=== PATIENT | male | born 1965 | race Caucasian/White ===

== ENCOUNTER 2016-10-02 10:50 | Outpatient (RCR) | payer BC ==
--- OUTSIDE RECORDS SUMMARY | 2016-08-07 14:55 | XMS REPORT | Continuity of Care Document ---
Author Author [facility] Organization [facility] Address Unknown Phone Unavailable Care Team Providers Care Machine Chain Maker Name Role Phone Dante Gabriel PCP [phone] Source Comments Some departments are not documenting in the electronic medical record. If you do not see the information that you expected, contact Release of Information in the Health Information Management department at [phone] for further assistance in locating additional records.[facility] Active Allergies and Adverse Reactions No Known Allergies Current Medications Prescription Sig. Disp. Refills Start End Date Status Date NO HOME MEDICATIONS Active Active Problems Problem Noted Date Pancreatic adenocarcinoma (HCC) 06/19/2011 Pancreatic mass 06/11/2011 Immunizations Name Dates Previously Given Next Due Acthib Vaccine 06/11/2011 Meningococcal Vaccine 06/11/2011 Pneumococcal Vaccine 06/11/2011 (23-Sujata Adult) Social History Tobacco Use Types Packs/Day Years Used Date Current Every Day Smoker Cigarettes 1 30 Smokeless Tobacco: Never Used Alcohol Use Drinks/Week oz/Week Comments Yes 5 Cans of 3.0 beer Last Filed Vital Signs Vital Sign Reading Time Taken Blood Pressure 147/104 06/11/2011 4:07 PM CDT Pulse 70 06/11/2011 4:07 PM CDT Temperature 36.9 C (98.4 F) 06/11/2011 4:07 PM CDT Respiratory Rate - - Height 1.651 m (5' 5") 06/11/2011 4:07 PM CDT Weight 75.841 kg (167 lb 3.2 oz) 06/11/2011 4:07 PM CDT Body Mass Index 27.82 06/11/2011 4:07 PM CDT Oxygen Saturation 98% 06/11/2011 4:07 PM CDT Plan of Care Health Maintenance Due Date Last Done Comments Physical (Comprehensive) 02/26/1971 Exam Pertussis Vaccine 02/26/1975 Tetanus Vaccine 02/26/1981 Colorectal Cancer 02/26/2014 Screening Influenza Vaccine 05/10/2016 Results from Last 3 Months Not on file
[2016-08-07 15:10] LABS: BASOPHILS # (AUTO) 0.1 10^3/uL (0.0-0.1); BASOPHILS % (AUTO) 1 % (0-10); EOSINOPHILS # (AUTO) 0.4 10^3/uL (0.0-0.3); EOSINOPHILS % (AUTO) 3 % (0-10); LYMPHOCYTES # (AUTO) 4.1 X 10^3 (1.0-4.0); LYMPHOCYTES % (AUTO) 30 % (12-44); MEAN CORPUSCULAR HEMOGLOBIN 36 PG (25-34); MEAN CORPUSCULAR HGB CONC 35 G/DL (32-36); MEAN CORPUSCULAR VOLUME 100 FL (80-99); MEAN PLATELET VOLUME 9.1 FL (7.4-10.4); MONOCYTES # (AUTO) 1.9 X 10^3 (0.0-1.0); MONOCYTES % (AUTO) 14 % (0-12); NEUTROPHILS # (AUTO) 7.2 X 10^3 (1.8-7.8); NEUTROPHILS % (AUTO) 52 % (42-75); PLATELET COUNT 358 10^3/uL (130-400); RED BLOOD COUNT 4.45 10^6/uL (4.35-5.85); RED CELL DISTRIBUTION WIDTH 12.8 % (10.0-14.5); WHITE BLOOD COUNT 13.8 10^3/uL (4.3-11.0)
[2016-08-07 15:37] LABS: ALANINE AMINOTRANSFERASE 15 U/L (0-55); ALBUMIN 4.5 G/DL (3.2-4.5); ANION GAP 9 MMOL/L (5-14); ASPARTATE AMINO TRANSFERASE 35 U/L (5-34); BLOOD UREA NITROGEN 8 MG/DL (7-18); BUN/CREATININE RATIO 10; CALCIUM 9.4 MG/DL (8.5-10.1); CARBON DIOXIDE 26 MMOL/L (21-32); CHLORIDE 95 MMOL/L (98-107); GFR ESTIMATED > 60; GLUCOSE 175 MG/DL (70-105); POTASSIUM 4.2 MMOL/L (3.6-5.0); SODIUM 130 MMOL/L (135-145)
[2016-08-08 10:58] LABS: BILIRUBIN,URINE NEGATIVE (NEGATIVE); KETONES,URINE NEGATIVE (NEGATIVE); LEUKOCYTE ESTERASE ,URINE NEGATIVE (NEGATIVE); NITRITE,URINE NEGATIVE (NEGATIVE); PH,URINE 7 (5-9); PROTEIN,URINE NEGATIVE (NEGATIVE); UROBILINOGEN,URINE NORMAL (NORMAL)
[2016-08-08 11:04] LABS: SQUAMOUS EPITHELIAL CELL,UR 0-2 /HPF
[~2016-10-02 10:50] MED LIST: CIPR500S2 PO; CTLP20T PO; DRON2.5C PO; METF-478 PO; ONDA8TAB2 PO; OXYC-12 PO; WRF2.5T PO; WRF5T PO
[2016-10-02 11:40] LABS: BASOPHILS # (AUTO) 0.1 10^3/uL (0.0-0.1); BASOPHILS % (AUTO) 1 % (0-10); EOSINOPHILS # (AUTO) 0.4 10^3/uL (0.0-0.3); EOSINOPHILS % (AUTO) 4 % (0-10); LYMPHOCYTES # (AUTO) 2.8 X 10^3 (1.0-4.0); LYMPHOCYTES % (AUTO) 27 % (12-44); MEAN CORPUSCULAR HEMOGLOBIN 35 PG (25-34); MEAN CORPUSCULAR HGB CONC 35 G/DL (32-36); MEAN CORPUSCULAR VOLUME 99 FL (80-99); MEAN PLATELET VOLUME 8.9 FL (7.4-10.4); MONOCYTES # (AUTO) 1.7 X 10^3 (0.0-1.0); MONOCYTES % (AUTO) 17 % (0-12); NEUTROPHILS # (AUTO) 5.3 X 10^3 (1.8-7.8); NEUTROPHILS % (AUTO) 51 % (42-75); PLATELET COUNT 367 10^3/uL (130-400); RED BLOOD COUNT 4.42 10^6/uL (4.35-5.85); RED CELL DISTRIBUTION WIDTH 12.7 % (10.0-14.5); WHITE BLOOD COUNT 10.2 10^3/uL (4.3-11.0)
[2016-10-02 12:18] LABS: ALANINE AMINOTRANSFERASE 17 U/L (0-55); ALBUMIN 4.3 G/DL (3.2-4.5); ANION GAP 9 MMOL/L (5-14); ASPARTATE AMINO TRANSFERASE 28 U/L (5-34); BILIRUBIN,TOTAL 1.1 MG/DL (0.1-1.0); BLOOD UREA NITROGEN 4 MG/DL (7-18); BUN/CREATININE RATIO 5; CALCIUM 8.7 MG/DL (8.5-10.1); CARBON DIOXIDE 22 MMOL/L (21-32); CHLORIDE 100 MMOL/L (98-107); CREATININE SERUM 0.75 MG/DL (0.60-1.30); GFR ESTIMATED > 60; GLUCOSE 123 MG/DL (70-105); POTASSIUM 4.1 MMOL/L (3.6-5.0); SODIUM 131 MMOL/L (135-145); TOTAL PROTEIN 6.9 G/DL (6.4-8.2)
== END 2016-11-05 | disposition home or self-care (01) ==
LOC: ONC 10:50
PROVIDERS: ATTEND Internal Medicine Hematology & Oncology
DX: C25.1 Malignant neoplasm of body of pancreas (principal); C78.7 Secondary malignant neoplasm of liver and intrahepatic bile duct; E11.9 Type 2 diabetes mellitus without complications; I10 Essential (primary) hypertension; F17.210 Nicotine dependence, cigarettes, uncomplicated; Z86.711 Personal history of pulmonary embolism; Z79.899 Other long term (current) drug therapy; Z80.3 Family history of malignant neoplasm of breast; Z80.52 Family history of malignant neoplasm of bladder; Z80.1 Family history of malignant neoplasm of trachea, bronchus and lung; Z80.8 Family history of malignant neoplasm of other organs or systems; Z80.42 Family history of malignant neoplasm of prostate
CPT/HCPCS: 36415; 80053; 81000; 85025; 86301; 99213

== ENCOUNTER → 2016-11-14 | Outpatient (CLI) | payer BC ==
[~2016-11-14] MED LIST changes: +BARIUM SUSPENSION 2.1% (VANILLA SILQ) 450 ML PO ONE; +CATHETER FLUSH 10 ML SYR IV PRN; +IOHEXOL 350 MG/ML 100 ML (OMNIPAQUE 350) VIAL IV ONE; +NS 100 ML (IVPB) BAG IV ONE
--- OUTSIDE RECORDS SUMMARY | 2016-11-14 08:12 | XMS REPORT | Continuity of Care Document ---
Author Author [facility] Organization [facility] Address Unknown Phone Unavailable Care Team Providers Care Corporate Development Analyst Name Role Phone Dante Gabriel PCP [phone] Source Comments Some departments are not documenting in the electronic medical record. If you do not see the information that you expected, contact Release of Information in the Health Information Management department at [phone] for further assistance in locating additional records.[facility] Active Allergies and Adverse Reactions [...]
--- NOTE | 2016-11-14 10:51 | Diagnostic Imaging Report ---
PROCEDURE: CT chest, abdomen, and pelvis with contrast. TECHNIQUE: Multiple contiguous axial images were obtained through the chest, abdomen, and pelvis after the administration of intravenous contrast. INDICATION: Pancreatic carcinoma. FINDINGS: The previous CT chest exam of 05/16/2016 noted a 3 mm noncalcified nodular density in the left upper lung. That finding is again evident and essentially no different (image 26 of 121). The prior study also identified a 6 mm pretracheal node and a 10 mm right hilar node. Those findings are also again visualized and stable. The lungs are otherwise clear. There is no sign of pneumonia, failure or pleural effusion to suggest an acute abnormality. The heart size is within normal limits. There are no coronary artery calcifications identified. The aorta is not abnormally dilated. There is no defect within the pulmonary arteries to indicate a pulmonary embolus. As noted on the prior CT abdomen/pelvis exam of 08/07/2016, the left lobe of the liver, the spleen, gallbladder and the body and tail of the pancreas are surgically absent. There is no abnormal density in either of these areas to suggest recurrent malignancy. The small area of diminished density in the right lobe of the liver seen on several previous exams is again evident and does not appear to have changed significantly. Consequently, this may well be related to scar formation. The liver is otherwise homogeneous. The kidneys, adrenals, aorta and inferior vena cava are unremarkable for an acute abnormality. The stomach is not well-distended and consequently difficult to assess. There are numerous fluid-filled segments of small bowel present. There is no sign of a bowel obstruction however. There does appear to be radiopaque material in the right colon. This may be secondary to ingested medication. The appendix was visualized and is not abnormal. The prostate gland is unremarkable. The wall of the urinary bladder is uniformly thickened. This finding is similar to the prior exam and is probably related to incomplete distention as opposed to cystitis. There is no pelvic mass or free fluid collection noted. Bone windows show no sign of a fracture or acute abnormality. IMPRESSION: The overall appearance of the chest, abdomen and pelvis is stable when compare to the prior exam. There is no acute abnormality identified and there is no new mass visualized to suggest neoplasm. Dictated by: Dictated on workstation # [id number]
== END ==
LOC: RAD 08:08
PROVIDERS: ATTEND Internal Medicine Hematology & Oncology
DX: C25.1 Malignant neoplasm of body of pancreas (principal); C78.7 Secondary malignant neoplasm of liver and intrahepatic bile duct; Z72.0 Tobacco use
CPT/HCPCS: 71260; 74177

== ENCOUNTER 2016-11-21 09:04 | Outpatient (RCR) | payer BC ==
--- OUTSIDE RECORDS SUMMARY | 2016-11-12 12:46 | XMS REPORT | Continuity of Care Document ---
Author Author [facility] Organization [facility] Address Unknown Phone Unavailable Care Team Providers Care Chest Painting Leader Name Role Phone Dante Gabriel PCP [phone] Source Comments Some departments are not documenting in the electronic medical record. If you do not see the information that you expected, contact Release of Information in the Health Information Management department at [phone] for further assistance in locating additional records.[facility] Active Allergies and Adverse Reactions No Known [...]
[2016-11-12 13:03] LABS: BASOPHILS # (AUTO) 0.1 10^3/uL (0.0-0.1); BASOPHILS % (AUTO) 1 % (0-10); EOSINOPHILS # (AUTO) 0.4 10^3/uL (0.0-0.3); EOSINOPHILS % (AUTO) 2 % (0-10); LYMPHOCYTES % (AUTO) 16 % (12-44); MEAN CORPUSCULAR HEMOGLOBIN 35 PG (25-34); MEAN CORPUSCULAR HGB CONC 35 G/DL (32-36); MEAN CORPUSCULAR VOLUME 99 FL (80-99); MEAN PLATELET VOLUME 9.1 FL (7.4-10.4); MONOCYTES # (AUTO) 2.2 X 10^3 (0.0-1.0); MONOCYTES % (AUTO) 12 % (0-12); NEUTROPHILS # (AUTO) 12.9 X 10^3 (1.8-7.8); NEUTROPHILS % (AUTO) 69 % (42-75); PLATELET COUNT 336 10^3/uL (130-400); RED BLOOD COUNT 4.47 10^6/uL (4.35-5.85); RED CELL DISTRIBUTION WIDTH 12.8 % (10.0-14.5); WHITE BLOOD COUNT 18.6 10^3/uL (4.3-11.0)
[2016-11-12 13:26] LABS: ALANINE AMINOTRANSFERASE 17 U/L (0-55); ALBUMIN 4.5 G/DL (3.2-4.5); ANION GAP 11 MMOL/L (5-14); ASPARTATE AMINO TRANSFERASE 29 U/L (5-34); BILIRUBIN,TOTAL 1.2 MG/DL (0.1-1.0); BLOOD UREA NITROGEN 6 MG/DL (7-18); BUN/CREATININE RATIO 8; CALCIUM 9.8 MG/DL (8.5-10.1); CARBON DIOXIDE 23 MMOL/L (21-32); CHLORIDE 96 MMOL/L (98-107); CREATININE SERUM 0.78 MG/DL (0.60-1.30); GFR ESTIMATED > 60; GLUCOSE 87 MG/DL (70-105); POTASSIUM 4.4 MMOL/L (3.6-5.0); SODIUM 130 MMOL/L (135-145); TOTAL PROTEIN 7.3 G/DL (6.4-8.2)
[~2016-11-21 09:04] MED LIST changes: -BARIUM SUSPENSION 2.1% (VANILLA SILQ) 450 ML PO ONE; -CATHETER FLUSH 10 ML SYR IV PRN; -IOHEXOL 350 MG/ML 100 ML (OMNIPAQUE 350) VIAL IV ONE; -NS 100 ML (IVPB) BAG IV ONE
== END 2017-02-10 | disposition home or self-care (01) ==
LOC: ONC 09:04
PROVIDERS: ATTEND Internal Medicine Hematology & Oncology
DX: C25.1 Malignant neoplasm of body of pancreas (principal); C78.7 Secondary malignant neoplasm of liver and intrahepatic bile duct; E11.9 Type 2 diabetes mellitus without complications; I10 Essential (primary) hypertension; F17.210 Nicotine dependence, cigarettes, uncomplicated; Z86.711 Personal history of pulmonary embolism; Z79.899 Other long term (current) drug therapy; Z80.3 Family history of malignant neoplasm of breast; Z80.52 Family history of malignant neoplasm of bladder; Z80.1 Family history of malignant neoplasm of trachea, bronchus and lung; Z80.8 Family history of malignant neoplasm of other organs or systems; Z80.42 Family history of malignant neoplasm of prostate
CPT/HCPCS: 36415; 80053; 85025; 86301; 99213

== ENCOUNTER → 2017-02-11 | Outpatient (CLI) | payer BC | LOC: RAD 09:06 | PROVIDERS: ATTEND Internal Medicine Hematology & Oncology | DX: C25.1 Malignant neoplasm of body of pancreas (principal); C78.7 Secondary malignant neoplasm of liver and intrahepatic bile duct ==

== ENCOUNTER → 2017-02-12 | Outpatient (CLI) | payer BC ==
[~2017-02-12] MED LIST changes: +BARIUM SUSPENSION 2.1% (VANILLA SILQ) 450 ML PO ONE; +CATHETER FLUSH 10 ML SYR IV PRN; +IOHEXOL 350 MG/ML 100 ML (OMNIPAQUE 350) VIAL IV ONE; +NS 100 ML (IVPB) BAG IV ONE
--- NOTE | 2017-02-12 12:58 | Diagnostic Imaging Report ---
PROCEDURE: CT chest, abdomen, and pelvis with contrast. TECHNIQUE: Multiple contiguous axial images were obtained through the chest, abdomen, and pelvis after the administration of intravenous contrast. INDICATION: Metastatic pancreatic cancer. COMPARISON: 11/14/2016. FINDINGS: CHEST: Small pretracheal node, AP thickness 6.4 mm, is stable and not appreciably pathologic. There is no hilar or subcarinal adenopathy. No axillary or thoracic inlet adenopathy. No dominant, acute or suspicious lung nodule. There were no findings at this study felt to be suggestive of the CT evidence for thoracic metastasis. No pneumonia, failure, or effusion. No chest wall disease. ABDOMEN AND PELVIS: Postoperative changes to the left hepatic lobe redemonstrated. Some linear hypodensity in the right hepatic lobe without mass effect is unchanged, likely distortion from the diaphragm and/or postoperative sequelae. No new focal area of abnormal hepatic density. No findings felt suggestive of new hepatic metastasis. No biliary ductal dilatation. Splenectomy and partial pancreatectomy noted. The residual pancreas is nonacute. Air-containing appendix is visualized and normal. There is no mesenteric or retroperitoneal adenopathy. The unobstructed kidneys were normal. There is no ascites. Imaging through the pelvis reveals thickening of the chan of the urinary bladder despite its distention. This is unchanged from prior. This may reflect cystitis or muscular hypertrophy. No bowel obstruction. No pelvic lymphadenopathy or free fluid. No suspicious or destructive osseous lesion. IMPRESSION: Overall, stable CT chest, abdomen, and pelvis with no convincing evidence of metastatic disease. CHEST: No suspicious nodes or dominant pulmonary nodules. No acute finding. ABDOMEN: Stable postoperative change, linear hypodensity in the right hepatic lobe unchanged without mass effect likely post-therapeutic. No adenopathy. PELVIS: Urinary bladder wall thickening. Cystitis could not be excluded. No lymphadenopathy or soft tissue mass. No suspicious bone lesion. Dictated by: Dictated on workstation # [id number]
== END ==
LOC: RAD 10:03
PROVIDERS: ATTEND Internal Medicine Hematology & Oncology
DX: C25.1 Malignant neoplasm of body of pancreas (principal); C78.7 Secondary malignant neoplasm of liver and intrahepatic bile duct
CPT/HCPCS: 71260; 74177

== ENCOUNTER 2017-02-20 10:56 | Outpatient (RCR) | payer BC ==
[2017-02-11 09:55] LABS: BASOPHILS # (AUTO) 0.1 10^3/uL (0.0-0.1); BASOPHILS % (AUTO) 1 % (0-10); EOSINOPHILS # (AUTO) 0.5 10^3/uL (0.0-0.3); EOSINOPHILS % (AUTO) 4 % (0-10); LYMPHOCYTES % (AUTO) 17 % (12-44); MEAN CORPUSCULAR HEMOGLOBIN 36 PG (25-34); MEAN CORPUSCULAR HGB CONC 36 G/DL (32-36); MEAN CORPUSCULAR VOLUME 100 FL (80-99); MEAN PLATELET VOLUME 9.1 FL (7.4-10.4); MONOCYTES % (AUTO) 17 % (0-12); NEUTROPHILS % (AUTO) 61 % (42-75); PLATELET COUNT 386 10^3/uL (130-400); RED BLOOD COUNT 4.54 10^6/uL (4.35-5.85); RED CELL DISTRIBUTION WIDTH 12.8 % (10.0-14.5); WHITE BLOOD COUNT 11.5 10^3/uL (4.3-11.0)
[2017-02-11 11:19] LABS: ALANINE AMINOTRANSFERASE 14 U/L (0-55); ALBUMIN 4.4 G/DL (3.2-4.5); ANION GAP 9 MMOL/L (5-14); ASPARTATE AMINO TRANSFERASE 27 U/L (5-34); BILIRUBIN,TOTAL 0.9 MG/DL (0.1-1.0); BLOOD UREA NITROGEN 9 MG/DL (7-18); BUN/CREATININE RATIO 11; CALCIUM 9.5 MG/DL (8.5-10.1); CARBON DIOXIDE 26 MMOL/L (21-32); CHLORIDE 98 MMOL/L (98-107); CREATININE SERUM 0.82 MG/DL (0.60-1.30); GFR ESTIMATED > 60; GLUCOSE 127 MG/DL (70-105); POTASSIUM 4.6 MMOL/L (3.6-5.0); SODIUM 133 MMOL/L (135-145); TOTAL PROTEIN 7.7 G/DL (6.4-8.2)
[~2017-02-20 10:56] MED LIST changes: -BARIUM SUSPENSION 2.1% (VANILLA SILQ) 450 ML PO ONE; -CATHETER FLUSH 10 ML SYR IV PRN; -IOHEXOL 350 MG/ML 100 ML (OMNIPAQUE 350) VIAL IV ONE; -NS 100 ML (IVPB) BAG IV ONE
== END 2017-05-12 | disposition home or self-care (01) ==
LOC: ONC 10:56
PROVIDERS: ATTEND Internal Medicine Hematology & Oncology
DX: C25.1 Malignant neoplasm of body of pancreas (principal); C78.7 Secondary malignant neoplasm of liver and intrahepatic bile duct; E11.9 Type 2 diabetes mellitus without complications; I10 Essential (primary) hypertension; F17.210 Nicotine dependence, cigarettes, uncomplicated; Z86.711 Personal history of pulmonary embolism; Z79.899 Other long term (current) drug therapy; Z80.3 Family history of malignant neoplasm of breast; Z80.52 Family history of malignant neoplasm of bladder; Z80.1 Family history of malignant neoplasm of trachea, bronchus and lung; Z80.8 Family history of malignant neoplasm of other organs or systems; Z80.42 Family history of malignant neoplasm of prostate
CPT/HCPCS: 36415; 80053; 85025; 86301; 99213

== ENCOUNTER → 2017-05-27 | Outpatient (CLI) | payer BC ==
--- NOTE | 2017-05-27 13:09 | Diagnostic Imaging Report ---
Injury to the big toe. FINDINGS: There is no fracture, dislocation, or radiopaque foreign body. Degenerative changes with osteophytes seen near the first metatarsophalangeal joint. IMPRESSION: No fracture seen. Dictated by: Dictated on workstation # [id number]
== END ==
LOC: RAD 12:07
PROVIDERS: ATTEND Nurse Practitioner Family
DX: M79.675 Pain in left toe(s) (principal)
CPT/HCPCS: 73660

== ENCOUNTER → 2017-06-04 | Outpatient (CLI) | payer BC ==
[~2017-06-04] MED LIST changes: +BARIUM SUSPENSION 2.1% (VANILLA SILQ) 450 ML PO ONE; +IOHEXOL 350 MG/ML 100 ML (OMNIPAQUE 350) VIAL IV ONE; +NS 100 ML (IVPB) BAG IV ONE
--- NOTE | 2017-06-04 10:01 | Diagnostic Imaging Report ---
PROCEDURE: CT chest, abdomen, and pelvis with contrast. TECHNIQUE: Multiple contiguous axial images were obtained through the chest, abdomen, and pelvis after the administration of intravenous contrast. INDICATION: History of pancreatic cancer status post surgical resection. COMPARISON: 02/12/2017. 100 mL of Omnipaque 350 administered intravenously FINDINGS: CT chest: The lungs demonstrate no significant consolidation, mass, or suspicious nodule. The heart size is normal. No pericardial or pleural effusion. The thoracic aorta is normal in caliber. There is a normal variation of left vertebral artery origin directly from the arch. There is a small right hilar lymph node measuring 9 mm in short-axis similar to 02/12/2017, of questionable significance. No other hilar or mediastinal significantly enlarged lymph node or significant change seen compared to the previous exam. The osseous structures appear grossly unremarkable. The liver demonstrates suggestion of prior left hepatectomy. Cholecystectomy clips are seen. There is evidence of prior distal pancreatectomy and splenectomy also. The remaining portion of the pancreas including the pancreatic head, neck, and uncinate process appear unremarkable. There is no significant biliary dilatation. In the right hepatic lobe there is a hypodense elongated area of probable benign etiology such as scarring seen without significant change from multiple prior exams including 05/16/2016. The adrenal glands appear unremarkable. The kidneys have symmetric enhancement and contrast excretion. There is no hydronephrosis. The abdominal aorta is normal in caliber. No para-aortic significantly enlarged lymph node seen. No significant free fluid or fluid collection in the abdomen or pelvis seen. The urinary bladder demonstrates mild wall thickening less prominent compared to 02/12/2017. This may relate to cystitis. The prostate is slightly enlarged measuring 4.9 cm in transverse dimension. The osseous structures appear grossly unremarkable. Degenerative changes in the hip joints, more on the right side and in the SI joints seen. IMPRESSION: CT chest: No evidence of metastasis. CT abdomen and pelvis: Post distal pancreatectomy and left hepatectomy changes are seen. There is a stable 1.6-cm hypodense focus in the right hepatic lobe from prior exams likely related to scarring. No evidence of tumor recurrence or metastasis. Dictated by: Dictated on workstation # [id number]
== END ==
LOC: RAD 08:53
PROVIDERS: ATTEND Internal Medicine Hematology & Oncology
DX: Z90.411 Acquired partial absence of pancreas (principal); C25.1 Malignant neoplasm of body of pancreas; C78.7 Secondary malignant neoplasm of liver and intrahepatic bile duct
CPT/HCPCS: 71260; 74177

== ENCOUNTER 2017-06-06 14:51 | Outpatient (RCR) | payer BC ==
[2017-06-03 10:50] LABS: BASOPHILS # (AUTO) 0.1 10^3/uL (0.0-0.1); BASOPHILS % (AUTO) 1 % (0-10); EOSINOPHILS # (AUTO) 0.3 10^3/uL (0.0-0.3); EOSINOPHILS % (AUTO) 3 % (0-10); LYMPHOCYTES # (AUTO) 2.2 X 10^3 (1.0-4.0); LYMPHOCYTES % (AUTO) 17 % (12-44); MEAN CORPUSCULAR HEMOGLOBIN 35 PG (25-34); MEAN CORPUSCULAR HGB CONC 35 G/DL (32-36); MEAN CORPUSCULAR VOLUME 101 FL (80-99); MEAN PLATELET VOLUME 9.6 FL (7.4-10.4); MONOCYTES # (AUTO) 1.8 X 10^3 (0.0-1.0); MONOCYTES % (AUTO) 15 % (0-12); NEUTROPHILS % (AUTO) 65 % (42-75); PLATELET COUNT 381 10^3/uL (130-400); RED BLOOD COUNT 4.62 10^6/uL (4.35-5.85); RED CELL DISTRIBUTION WIDTH 12.8 % (10.0-14.5); WHITE BLOOD COUNT 12.4 10^3/uL (4.3-11.0)
[2017-06-03 11:13] LABS: ALANINE AMINOTRANSFERASE 17 U/L (0-55); ALBUMIN 4.4 GM/DL (3.2-4.5); ANION GAP 9 MMOL/L (5-14); ASPARTATE AMINO TRANSFERASE 30 U/L (5-34); BILIRUBIN,TOTAL 1.2 MG/DL (0.1-1.0); BLOOD UREA NITROGEN 10 MG/DL (7-18); BUN/CREATININE RATIO 12; CALCIUM 9.4 MG/DL (8.5-10.1); CARBON DIOXIDE 26 MMOL/L (21-32); CHLORIDE 96 MMOL/L (98-107); CREATININE SERUM 0.82 MG/DL (0.60-1.30); GFR ESTIMATED > 60; GLUCOSE 161 MG/DL (70-105); POTASSIUM 4.7 MMOL/L (3.6-5.0); SODIUM 131 MMOL/L (135-145); TOTAL PROTEIN 7.7 GM/DL (6.4-8.2)
[~2017-06-06 14:51] MED LIST changes: -BARIUM SUSPENSION 2.1% (VANILLA SILQ) 450 ML PO ONE; -IOHEXOL 350 MG/ML 100 ML (OMNIPAQUE 350) VIAL IV ONE; -NS 100 ML (IVPB) BAG IV ONE
== END 2017-06-08 | disposition home or self-care (01) ==
LOC: ONC 14:51
PROVIDERS: ATTEND Internal Medicine Hematology & Oncology
DX: C78.7 Secondary malignant neoplasm of liver and intrahepatic bile duct; Z80.3 Family history of malignant neoplasm of breast; I10 Essential (primary) hypertension; Z79.899 Other long term (current) drug therapy; Z80.8 Family history of malignant neoplasm of other organs or systems; Z86.711 Personal history of pulmonary embolism; E11.9 Type 2 diabetes mellitus without complications; C25.1 Malignant neoplasm of body of pancreas; Z80.1 Family history of malignant neoplasm of trachea, bronchus and lung; Z80.42 Family history of malignant neoplasm of prostate; Z80.52 Family history of malignant neoplasm of bladder; F17.210 Nicotine dependence, cigarettes, uncomplicated
CPT/HCPCS: 36415; 80053; 85025; 86301; 99213

== ENCOUNTER 2017-09-13 13:13 | Outpatient (RCR) | payer BC ==
[2017-09-13 13:48] LABS: BASOPHILS # (AUTO) 0.1 10^3/uL (0.0-0.1); BASOPHILS % (AUTO) 1 % (0-10); EOSINOPHILS # (AUTO) 0.3 10^3/uL (0.0-0.3); EOSINOPHILS % (AUTO) 2 % (0-10); HEMATOCRIT 37 % (40-54); HEMOGLOBIN 14.2 G/DL (13.3-17.7); LYMPHOCYTES # (AUTO) 3.7 X 10^3 (1.0-4.0); LYMPHOCYTES % (AUTO) 24 % (12-44); MEAN CORPUSCULAR HEMOGLOBIN 35 PG (25-34); MEAN CORPUSCULAR HGB CONC 39 G/DL (32-36); MEAN CORPUSCULAR VOLUME 92 FL (80-99); MEAN PLATELET VOLUME 8.8 FL (7.4-10.4); MONOCYTES # (AUTO) 1.7 X 10^3 (0.0-1.0); MONOCYTES % (AUTO) 11 % (0-12); NEUTROPHILS # (AUTO) 9.6 X 10^3 (1.8-7.8); NEUTROPHILS % (AUTO) 63 % (42-75); PLATELET COUNT 362 10^3/uL (130-400); RED BLOOD COUNT 4.01 10^6/uL (4.35-5.85); RED CELL DISTRIBUTION WIDTH 11.9 % (10.0-14.5); WHITE BLOOD COUNT 15.4 10^3/uL (4.3-11.0)
[2017-09-13 14:08] LABS: ALANINE AMINOTRANSFERASE 18 U/L (0-55); ALBUMIN 4.3 GM/DL (3.2-4.5); ALKALINE PHOSPHATASE 72 U/L (40-136); BILIRUBIN,TOTAL 1.7 MG/DL (0.1-1.0); BUN/CREATININE RATIO 10; CALCIUM 9.1 MG/DL (8.5-10.1); CARBON DIOXIDE 25 MMOL/L (21-32); CHLORIDE 93 MMOL/L (98-107); CREATININE SERUM 0.93 MG/DL (0.60-1.30); GFR ESTIMATED > 60; GLUCOSE 161 MG/DL (70-105); POTASSIUM 4.4 MMOL/L (3.6-5.0); SODIUM 129 MMOL/L (135-145); TOTAL PROTEIN 7.1 GM/DL (6.4-8.2)
== END 2017-12-12 | disposition home or self-care (01) ==
LOC: ONC 13:13
PROVIDERS: ATTEND Internal Medicine Hematology & Oncology
DX: C25.1 Malignant neoplasm of body of pancreas (principal); C78.7 Secondary malignant neoplasm of liver and intrahepatic bile duct; E11.9 Type 2 diabetes mellitus without complications; I10 Essential (primary) hypertension; F17.210 Nicotine dependence, cigarettes, uncomplicated; Z86.711 Personal history of pulmonary embolism; Z79.899 Other long term (current) drug therapy; Z80.3 Family history of malignant neoplasm of breast; Z80.52 Family history of malignant neoplasm of bladder; Z80.1 Family history of malignant neoplasm of trachea, bronchus and lung; Z80.8 Family history of malignant neoplasm of other organs or systems; Z80.42 Family history of malignant neoplasm of prostate
CPT/HCPCS: 80053; 85025; 86301; 99213

== ENCOUNTER → 2017-09-16 | Outpatient (CLI) | payer BC ==
[~2017-09-16] MED LIST changes: +BARIUM SUSPENSION 2.1% (VANILLA SILQ) 450 ML PO ONE; +CATHETER FLUSH 10 ML SYR IV PRN; +IOHEXOL 350 MG/ML 100 ML (OMNIPAQUE 350) VIAL IV ONE; +NS 100 ML (IVPB) BAG IV ONE
--- NOTE | 2017-09-16 15:58 | Diagnostic Imaging Report ---
PROCEDURE: CT chest, abdomen, and pelvis with contrast. TECHNIQUE: Multiple contiguous axial images were obtained through the chest, abdomen, and pelvis after the administration of intravenous contrast. INDICATION: Pancreatic cancer. COMPARISON: Comparison made with prior examination from 06/04/2017. FINDINGS: There are no discrete pulmonary nodules, masses, or infiltrates. There is no pleural or pericardial fluid. There is no pneumothorax. Heart size is normal. There is no pathologically enlarged adenopathy in the chest. There is no pneumothorax. The osseous structures are unremarkable apart from mild degenerative change. There has been resection of the left lobe of the liver. There is an unchanged linear area of decreased density in the lateral aspect of the right lobe of the liver. No other discrete liver lesions are appreciated. 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 There are postsurgical changes of distal pancreatectomy. The remaining residual pancreas is grossly unremarkable. The adrenal glands and kidneys are normal. The aorta is nonaneurysmal. The bowel gas pattern is nonspecific. There is no free air. There is some questionable mild bladder wall thickening. Bladder is somewhat distended. There is no pelvic mass or adenopathy. Osseous structures are unremarkable apart from degenerative changes in the right hip. IMPRESSION: 1. No evidence of metastatic disease in the chest. 2. Unchanged findings of postsurgical changes of a distal pancreatectomy and left hepatectomy. 3. Unchanged linear hypodense area in the lateral aspect of the right lobe of the liver, likely scarring. 4. Moderate distention of the bladder with some bladder wall thickening. Possibility of cystitis cannot be excluded. Recommend clinical correlation. 5. Degenerative changes in the right hip. Dictated by: Dictated on workstation # [id number]
== END ==
LOC: RAD 14:16
PROVIDERS: ATTEND Internal Medicine Hematology & Oncology
DX: N32.89 Other specified disorders of bladder (principal); K76.89 Other specified diseases of liver; M16.11 Unilateral primary osteoarthritis, right hip; Z90.411 Acquired partial absence of pancreas; Z98.890 Other specified postprocedural states; Z90.89 Acquired absence of other organs; Z85.07 Personal history of malignant neoplasm of pancreas; Z85.05 Personal history of malignant neoplasm of liver
CPT/HCPCS: 71260; 74177

== ENCOUNTER 2018-03-07 13:28 | Outpatient (RCR) | payer BC, MEDICARE ==
[~2018-03-07 13:28] MED LIST changes: -BARIUM SUSPENSION 2.1% (VANILLA SILQ) 450 ML PO ONE; -CATHETER FLUSH 10 ML SYR IV PRN; -IOHEXOL 350 MG/ML 100 ML (OMNIPAQUE 350) VIAL IV ONE; -NS 100 ML (IVPB) BAG IV ONE
[2018-03-07 13:46] LABS: BASOPHILS # (AUTO) 0.1 10^3/uL (0.0-0.1); BASOPHILS % (AUTO) 1 % (0-10); EOSINOPHILS # (AUTO) 0.5 10^3/uL (0.0-0.3); EOSINOPHILS % (AUTO) 2 % (0-10); HEMATOCRIT 42 % (40-54); HEMOGLOBIN 15.5 G/DL (13.3-17.7); LYMPHOCYTES # (AUTO) 3.9 X 10^3 (1.0-4.0); LYMPHOCYTES % (AUTO) 18 % (12-44); MEAN CORPUSCULAR HEMOGLOBIN 36 PG (25-34); MEAN CORPUSCULAR HGB CONC 37 G/DL (32-36); MEAN CORPUSCULAR VOLUME 99 FL (80-99); MEAN PLATELET VOLUME 8.4 FL (7.4-10.4); MONOCYTES # (AUTO) 2.2 X 10^3 (0.0-1.0); MONOCYTES % (AUTO) 10 % (0-12); NEUTROPHILS # (AUTO) 14.9 X 10^3 (1.8-7.8); NEUTROPHILS % (AUTO) 69 % (42-75); PLATELET COUNT 408 10^3/uL (130-400); RED CELL DISTRIBUTION WIDTH 12.5 % (10.0-14.5); WHITE BLOOD COUNT 21.5 10^3/uL (4.3-11.0)
[2018-03-07 14:03] LABS: ALANINE AMINOTRANSFERASE 12 U/L (0-55); ALBUMIN 4.4 GM/DL (3.2-4.5); ALKALINE PHOSPHATASE 70 U/L (40-136); BILIRUBIN,TOTAL 1.3 MG/DL (0.1-1.0); BUN/CREATININE RATIO 11; CALCIUM 9.3 MG/DL (8.5-10.1); CARBON DIOXIDE 20 MMOL/L (21-32); CHLORIDE 96 MMOL/L (98-107); CREATININE SERUM 0.93 MG/DL (0.60-1.30); GFR ESTIMATED > 60; GLUCOSE 122 MG/DL (70-105); POTASSIUM 4.7 MMOL/L (3.6-5.0); SODIUM 126 MMOL/L (135-145); TOTAL PROTEIN 7.5 GM/DL (6.4-8.2)
== END 2018-06-05 | disposition home or self-care (01) ==
LOC: ONC 13:28
PROVIDERS: ATTEND Internal Medicine Hematology & Oncology
DX: C25.1 Malignant neoplasm of body of pancreas (principal); C78.7 Secondary malignant neoplasm of liver and intrahepatic bile duct; E11.9 Type 2 diabetes mellitus without complications; I10 Essential (primary) hypertension; F17.210 Nicotine dependence, cigarettes, uncomplicated; Z86.711 Personal history of pulmonary embolism; Z79.899 Other long term (current) drug therapy; Z80.3 Family history of malignant neoplasm of breast; Z80.52 Family history of malignant neoplasm of bladder; Z80.1 Family history of malignant neoplasm of trachea, bronchus and lung; Z80.8 Family history of malignant neoplasm of other organs or systems; Z80.42 Family history of malignant neoplasm of prostate
CPT/HCPCS: 36415; 80053; 85025; 86301; 99213

== ENCOUNTER → 2018-03-13 | Outpatient (CLI) | payer MEDICARE ==
[~2018-03-13] MED LIST changes: +BARIUM SUSPENSION 2.1% (VANILLA SILQ) 450 ML PO ONE; +CATHETER FLUSH 10 ML SYR IV PRN; +IOHEXOL 350 MG/ML 100 ML (OMNIPAQUE 350) VIAL IV ONE; +NS 250 ML (IVPB) BAG IV ONE; +RECEIVED CONTRAST (Hold Metformin) IV SCH
--- NOTE | 2018-03-13 14:08 | Diagnostic Imaging Report ---
PROCEDURE: CT chest with contrast, CT abdomen and pelvis with and without contrast. TECHNIQUE: Pre and post intravenous contrast axial imaging of the abdomen and pelvis and post contrast axial imaging of the chest were performed. INDICATION: Pancreatic carcinoma with liver metastases. The study is performed for followup. COMPARISON: Comparison is made with prior CT from 09/16/2017. CT CHEST: No axillary lymphadenopathy is detected. No definite hilar or mediastinal lymphadenopathy is detected. No pericardial or pleural fluid is identified. No pulmonary infiltrates, nodules, or masses are seen. IMPRESSION: No evidence of thoracic lymphadenopathy or pulmonary metastatic disease. CT ABDOMEN AND PELVIS: Postsurgical changes of left hepatectomy as well as partial pancreatectomy and splenectomy are again noted. Linear low density right lobe of the liver appears stable. No discrete liver mass is identified. The gallbladder is surgically absent. No biliary ductal dilatation is seen. The visualized pancreatic head is unremarkable. There are some benign calcifications present at the pancreatic head, similar to prior. No adrenal mass is identified. The kidneys are unremarkable. The aorta is calcified but nonaneurysmal. Small and large bowel loops appear to be nonobstructive. There is no ascites. Bladder is unremarkable. No definite abdominal or pelvic lymphadenopathy is seen. IMPRESSION: Stable postsurgical changes to the abdomen when compared with exam from 09/16/2017. No abdominal or pelvic lymphadenopathy or evidence of metastatic disease is seen. Dictated by: Dictated on workstation # [id number]
== END ==
LOC: RAD 12:34
PROVIDERS: ATTEND Internal Medicine Hematology & Oncology
DX: C25.1 Malignant neoplasm of body of pancreas (principal); C78.7 Secondary malignant neoplasm of liver and intrahepatic bile duct; Z98.890 Other specified postprocedural states
CPT/HCPCS: 71260; 74178

== ENCOUNTER → 2018-10-29 | Outpatient (CLI) | payer MEDICARE ==
--- NOTE | 2018-10-29 10:11 | Diagnostic Imaging Report ---
PROCEDURE: CT abdomen and pelvis without contrast. TECHNIQUE: Multiple contiguous axial images were obtained through the abdomen and pelvis without the use of intravenous contrast. INDICATION: Right lower quadrant pain, epigastric pain. The patient has a history of pancreatic cancer. Exam compared with study 03/13/2018. FINDINGS: The air-containing appendix is well-visualized in the right lower quadrant, it appeared normal and its wall non-thickened, it was nondilated and there is no periappendiceal edema. Pelvic calcification compatible with phleboliths stable. No opaque ureteral stone, perinephric edema or hydronephrosis. The gallbladder is surgically absent. There is no pathological distention of the bile ducts. Postsurgical changes about the pancreas with distal pancreatectomy noted. The urinary bladder is distended, its wall mildly thickened, this appeared very similar to the previous, chronic cystitis could not be excluded. There is no bowel obstruction. There is no ascites, abscess, hematoma or fluid collection. The osseous structures appeared stable and unremarkable. The patient's lung bases were clear. No abscess, hematoma, fluid collection, pneumatosis or free air. No focal inflammatory process is revealed at this nonenhanced exam, an acute finding is not apparent. IMPRESSION: 1. Distended mildly thickened urinary bladder wall unchanged from prior, chronic cystitis could not be excluded. 2. Normal appendix, unobstructed urinary tracts. Postsurgical changes without fluid collection, focal inflammatory process, mass or adenopathy apparent at this noncontrasted exam. Dictated by: Dictated on workstation # [id number]
== END ==
LOC: RAD 09:45
PROVIDERS: ATTEND Internal Medicine
DX: N32.89 Other specified disorders of bladder (principal); R10.13 Epigastric pain; Z90.49 Acquired absence of other specified parts of digestive tract; Z98.890 Other specified postprocedural states; Z85.07 Personal history of malignant neoplasm of pancreas
CPT/HCPCS: 74176

== ENCOUNTER → 2018-10-31 | Outpatient (CLI) | payer MEDICARE ==
[~2018-10-31] MED LIST changes: -BARIUM SUSPENSION 2.1% (VANILLA SILQ) 450 ML PO ONE; -CATHETER FLUSH 10 ML SYR IV PRN; -IOHEXOL 350 MG/ML 100 ML (OMNIPAQUE 350) VIAL IV ONE; -NS 250 ML (IVPB) BAG IV ONE; -RECEIVED CONTRAST (Hold Metformin) IV SCH
== END ==
LOC: LAB 11:23
PROVIDERS: ATTEND Internal Medicine
DX: K52.9 Noninfective gastroenteritis and colitis, unspecified (principal)
CPT/HCPCS: 87015; 87045; 87046; 87328; 87329; 87449; 87899; 89055

== ENCOUNTER → 2019-02-17 | Outpatient (CLI) | payer MEDICARE ==
[~2019-02-17] MED LIST changes: +CATHETER FLUSH 10 ML SYR IV PRN; +DIATRIZOATE MEGLUM/SODIUM 37% 120 ML (GASTROGRAFIN) PO ONE; +HOLD METFORMIN - RECEIVED CONTRAST 20 ML VIAL IV SCH; +IOHEXOL 350 MG/ML 100 ML (OMNIPAQUE 350) VIAL IV ONE; +NS 100 ML (IVPB) BAG IV ONE
[2019-02-17 14:57] LABS: BUN/CREATININE RATIO 8; CREATININE SERUM 0.75 MG/DL (0.60-1.30); GFR ESTIMATED > 60
--- NOTE | 2019-02-17 18:00 | Diagnostic Imaging Report ---
PROCEDURE: CT chest, abdomen, and pelvis with contrast. TECHNIQUE: Multiple contiguous axial images were obtained through the chest, abdomen, and pelvis after the administration of intravenous contrast. Auto Exposure Controls were utilized during the CT exam to meet ALARA standards for radiation dose reduction. INDICATION: Pancreatic carcinoma. FINDINGS: The previous CT chest, abdomen, and pelvis exam performed on 03/13/2018 noted postsurgical changes consistent with a prior resection of the body and tail of the pancreas. The left lobe of the liver was also surgically excised, and there had been a prior cholecystectomy and splenectomy as well. On this exam, those findings are again evident and no different. There is no sign of a mass in the pancreatic bed to suggest recurrent neoplasm. The small cleft of diminished density in the right lobe of the liver seen on the previous study is again evident and unchanged. The liver itself is generally homogeneous. The kidneys, adrenals, aorta, and inferior vena cava show no sign of an acute abnormality. The stomach is filled with oral contrast and difficult to assess. There is no pelvic mass or free fluid collection evident. As seen on the previous exam, the gallbladder is not well distended, and the gallbladder wall does seem thickened. The prostate gland is not enlarged. The images through the thorax show that the heart size is within normal limits. The aorta is not abnormally dilated, and there is no sign of a dissection. There is no defect within the pulmonary arteries to indicate a pulmonary embolus. The 4.7 mm opacity in the right upper lung seen on the previous study is again evident and no different (image 20/123). The lungs are generally clear. There is no sign of failure, pneumonia, or pleural effusion. There is no mediastinal or hilar adenopathy. The thyroid gland is generally unremarkable. The bone windows show no sign of a fracture or of a destructive lesion. IMPRESSION: 1. The postsurgical changes involving the abdomen appear stable. There is no evidence for a mass to suggest neoplastic disease. 2. There is no acute abnormality of the chest, abdomen, and pelvis. Dictated by: Dictated on workstation # [id number]
== END ==
LOC: RAD 13:34
PROVIDERS: ATTEND Internal Medicine
DX: C25.9 Malignant neoplasm of pancreas, unspecified (principal); R91.1 Solitary pulmonary nodule; Z98.890 Other specified postprocedural states; Z90.89 Acquired absence of other organs; Z90.49 Acquired absence of other specified parts of digestive tract; Z90.81 Acquired absence of spleen
CPT/HCPCS: 36415; 71260; 74177; 82565; 84520

== ENCOUNTER 2019-07-15 05:38 | Outpatient (CLI) | payer MEDICARE ==
[~2019-07-15] VITALS: Ht 167 cm; Wt 70.5 kg
[~2019-07-15 05:38] MED LIST changes: -CATHETER FLUSH 10 ML SYR IV PRN; -DIATRIZOATE MEGLUM/SODIUM 37% 120 ML (GASTROGRAFIN) PO ONE; -HOLD METFORMIN - RECEIVED CONTRAST 20 ML VIAL IV SCH; -IOHEXOL 350 MG/ML 100 ML (OMNIPAQUE 350) VIAL IV ONE; -NS 100 ML (IVPB) BAG IV ONE
[2019-07-15] MEDS ORDERED: LORA1TAB PO (11:41)
[2019-07-16] MEDS ORDERED: HYDR-3820 PO (11:28)
== END 2019-07-15 13:56 | disposition home or self-care (01) ==
LOC: PREOP 05:38
PROVIDERS: ATTEND Surgery
DX: Z01.818 Encounter for other preprocedural examination (principal)

== ENCOUNTER 2019-07-16 08:45 | Day surgery (SDC) | payer MEDICARE ==
--- NOTE | 2019-07-14 17:17 | HISTORY AND PHYSICAL ---
DATE OF SERVICE: 07/16/2019 PROCEDURE DATE: 07/16/2019 ATTENDING PHYSICIAN: Kandice Campbell MD. HISTORY OF PRESENT ILLNESS: The patient is a 54-year-old male who is being seen for pain in the left inguinal region. The patient reports that he has had a right inguinal hernia for 6 months; however, has developed pain on the left and believes that he does have a left inguinal hernia. He reports that the pain started yesterday and reports it does radiate down his left thigh. He denies any diarrhea or constipation as well as no abdominal pain. He also denies any fever or chills. He also reports that he is in need of a screening colonoscopy and has never had a colonoscopy before. He denies any red blood in the stool as well as no diarrhea, constipation or any abdominal pain. PAST MEDICAL HISTORY: Pancreatic cancer, degenerative joint disease, degenerative arthritis, pulmonary embolism, type 2 diabetes, anxiety. PAST SURGICAL HISTORY: Tonsillectomy, umbilical hernia repair, right shoulder, right knee arthroscopy, laparoscopic cholecystectomy in 11/2014, distal pancreatic resection, splenectomy and partial liver resection in 04/2015, placement of a [place] port in 06/2015. ALLERGIES: No known drug allergies. MEDICATIONS: Metformin and Xanax. SOCIAL HISTORY: Positive for smoke, social for alcohol. FAMILY HISTORY: Father with brain and prostate cancer. Sister with melanoma. Maternal aunt with ovarian cancer. Paternal grandfather with myocardial infarction at 84 years of age. Brother with pancreatic cancer. VITAL SIGNS: Blood pressure is 140/60. Current weight 155.4, 5 feet 6 inches. REVIEW OF SYSTEMS: Well-nourished male in no acute distress. He is not experiencing any shortness of breath or difficulty breathing. No chest pain, palpitations or diaphoresis. No nausea, vomiting or abdominal pain. He does report pain in the left inguinal region that does radiate down his left thigh. No diarrhea or constipation. No red blood per rectum. No dark tarry stools. No fever or chills. No recent inadvertent weight loss. All other review of systems negative. PHYSICAL EXAMINATION: CHEST: Clear. Good breath sounds bilaterally. HEART: Regular, no murmurs. EXTREMITIES: No lower extremity edema. Negative Homans sign. HEENT: No scleral icterus. No cervical lymphadenopathy. ABDOMEN: Soft, distended. Upon examination with the patient performing Valsalva maneuver, there is bilateral inguinal hernias identified, which are tender to palpation; however, do appear to be reducible. SKIN: Warm, dry and pink. NEUROLOGIC: Awake, alert, oriented x3. ASSESSMENT AND PLAN: A 54-year-old male with bilateral symptomatic inguinal hernias, was also in need of a screening colonoscopy. At this time, we will recommend proceeding with a laparoscopic bilateral inguinal hernia repair with mesh as well as a screening colonoscopy. Risks and benefits of the procedure as well as the procedure and home care instructions were explained to the patient. The patient verbalized understanding of instructions and agrees to this plan. At this time, we will proceed with scheduling the patient for a laparoscopic bilateral inguinal hernia repair with mesh as well as a screening colonoscopy. Job ID: [id number] DocumentID: [id number] Dictated Date: 07/14/2019 12:14:57 Belt Loop Maker Date: 07/14/2019 12:43:44 Dictated By: SUMAYA HERRING APRN
[2019-07-16] VITALS (13 sets, daily range): BP systolic 98–153; BP diastolic 52–98
[~2019-07-16] VITALS: Ht 167 cm; Wt 70.5 kg
[~2019-07-16 08:45] MED LIST changes: +LORA1TAB PO
[2019-07-16] MEDS ORDERED: LACTATED RINGERS 1,000 ML IV PRN (09:09)
[2019-07-16] MEDS ORDERED: ceFAZolin 2 GM IV Premixed 50 ML IV ONE (09:15)
[2019-07-16 09:32] LABS: BASOPHILS # (AUTO) 0.1 10^3/uL (0.0-0.1); BASOPHILS % (AUTO) 1 % (0-10); EOSINOPHILS # (AUTO) 0.4 10^3/uL (0.0-0.3); EOSINOPHILS % (AUTO) 3 % (0-10); HEMATOCRIT 44 % (40-54); HEMOGLOBIN 15.8 G/DL (13.3-17.7); LYMPHOCYTES # (AUTO) 1.8 X 10^3 (1.0-4.0); LYMPHOCYTES % (AUTO) 15 % (12-44); MEAN CORPUSCULAR HEMOGLOBIN 35 PG (25-34); MEAN CORPUSCULAR HGB CONC 36 G/DL (32-36); MEAN CORPUSCULAR VOLUME 98 FL (80-99); MEAN PLATELET VOLUME 8.7 FL (7.4-10.4); MONOCYTES # (AUTO) 1.8 X 10^3 (0.0-1.0); MONOCYTES % (AUTO) 15 % (0-12); NEUTROPHILS % (AUTO) 66 % (42-75); PLATELET COUNT 417 10^3/uL (130-400); RED CELL DISTRIBUTION WIDTH 12.4 % (10.0-14.5)
[2019-07-16] MEDS ORDERED: ceFAZolin 2 GM/50 ML PRE-MIX IV ONE (09:45)
[2019-07-16] MEDS ORDERED: proPOfol 200 MG/20 ML (DIPRIVAN) VIAL IV ONE ×2 (10:54→13:15)
[2019-07-16] MEDS ORDERED: ROCURONIUM 10 MG/ML 5 ML SYRINGE IV ONE ×2 (10:54→13:15)
[2019-07-16] MEDS ORDERED: GLYCOPYRROLATE 0.2 MG/ML (ROBINUL) 2 ML VIAL ONE ×2 (10:54→13:15)
[2019-07-16] MEDS ORDERED: NEOSTIGMINE 3 MG/3 ML VIAL ONE ×2 (10:54→13:15)
[2019-07-16] MEDS ORDERED: LIDOCAINE PF 2% 5 ML (XYLOCAINE) VIAL ONE (10:54)
[2019-07-16] MEDS ORDERED: MIDAZOLAM 2 MG/2 ML (VERSED) VIAL ONE (10:54)
[2019-07-16] MEDS ORDERED: SEVOFLURANE (ULTANE) 15 ML INHAL SOLN ONE ×5 (10:54→13:15)
[2019-07-16] MEDS ORDERED: ONDANSETRON 4 MG/2 ML (SDV) Z0FRAN ONE (10:54)
[2019-07-16] MEDS ORDERED: fentaNYL INJECTION 100 MCG/2 ML AMP ONE ×2 (10:54→12:23)
[2019-07-16] MEDS ORDERED: BUP/EPI 0.5% 1:200,000 (SENSORCAINE) 30 ML VIAL ONE ×2 (10:55→11:15)
--- NOTE | 2019-07-16 11:26 | Progress Note-Pre Operative ---
Pre-Operative Progress Note H&P Reviewed The H&P was reviewed, patient examined and no changes noted. Date Seen by Provider: Jul 16, 2019 Time Seen by Provider: 09:25 Date H&P Reviewed: Jul 16, 2019 Time H&P Reviewed: 09:20 Pre-Operative Diagnosis: Bilateral inguinal hernias and screening colonoscopy SUMAYA HERRING APRN Jul 16, 2019 11:26 POS
[2019-07-16] MEDS ORDERED: HYDR-3820 PO (11:28)
--- NOTE | 2019-07-16 11:29 | Discharge Inst-Surgical ---
D/C Lap Instructions-KIDO Reconcile Patient Problems Problems Reviewed?: Yes New, Converted, or Re-Newed RX: RX on Chart Follow Up Appt in 2 weeks Activity as tolerated No driving for 24 hours No driving while on pain medications Incentive Spirometry use every 2 hours while awake Regular Diet Symptoms to Report: Fever over 101 degree F, Nausea/Vomiting Infection Signs and Symptoms to report: Increased redness, Foul odor of wound, Increased drainage Bathing instructions: May shower Operative Area Clean/Dry; Keep incision clean/dry If any problems/questions: Contact your physician or go to Emergency Room SUMAYA HERRING APRN Jul 16, 2019 11:29 POS
[2019-07-16] MEDS ORDERED: HYDROcodone/APAP 5 MG/325 MG (LORTAB) TAB PO ONE (11:30)
[2019-07-16] MEDS ORDERED: ACETAMINOPHEN 325 MG TABLET PO PRN (11:30)
[2019-07-16] MEDS ORDERED: ONDANSETRON 4 MG/2 ML (SDV) Z0FRAN IVP PRN ×2 (11:30→13:30)
[2019-07-16] MEDS ORDERED: morphine INJ 10 MG/ML 1ML (SYR OR VIAL) IVP PRN (11:30)
--- NOTE | 2019-07-16 13:09 | Progress Note-Post Operative ---
Post-Operative Progess Note Surgeon (s)/Customer Account Technician (s) Surgeon Dr. Paul Gil M.D. Customer Account Technician: Chi Herring CHECKOUT OPERATOR Pre-Operative Diagnosis Bilateral inguinal hernias and screening colonoscopy Post-Operative Diagnosis Left indirect inguinal hernia, no right inguinal hernia, Chronic stage II external and Internal hemorrhoids. Procedure & Operative Findings Date of Procedure 07/16/19 Procedure Performed/Findings Laparoscopic left inguinal hernia repair with mesh, colonoscopy Anesthesia Type GET Estimated Blood Loss Estimated blood loss (mL): minimal Specimens/Packing Specimens Removed None CHI HERRING CHECKOUT OPERATOR Jul 16, 2019 13:09 POS
[2019-07-16] MEDS ORDERED: HYDROmorphone 2 MG/ML VIAL (DILAUDID) IV ONE (13:30)
[2019-07-16] MEDS ORDERED: morphine INJ 10 MG/ML 1ML (SYR OR VIAL) IVP ONE (13:30)
--- NOTE | 2019-07-16 14:43 | OPERATIVE REPORT ---
DATE OF SERVICE: 07/16/2019 ATTENDING PRIMARY CARE PHYSICIAN: Sammy Herrera DO PREOPERATIVE DIAGNOSES: Symptomatic left reducible inguinal hernia. Possible right inguinal hernia. Screening colonoscopy. POSTOPERATIVE DIAGNOSES: Left indirect inguinal hernia. No right inguinal hernia component. Mild chronic stage II external and internal hemorrhoids. No polyps or any neoplasms identified. PROCEDURE: Laparoscopic left inguinal hernia repair with mesh, colonoscopy. SURGEON: Heidy Garcia MD ANESTHESIA: General endotracheal. ESTIMATED BLOOD LOSS: Minimal. FINDINGS: Same as postoperative diagnoses. DISPOSITION: The patient tolerated the procedure well. INDICATIONS: The patient is a 54-year-old male known to us. He has a history of pancreatic cancer and is status post subtotal pancreatectomy approximately 8 years ago. He did develop cholecystitis and eventually underwent a laparoscopic cholecystectomy. He developed pain in the left inguinal region after doing some lifting and exertion and felt a palpable bulge, which then reduced on its own; however, after this happened, he developed a significant pain in the left groin upon movement as well as palpation. He was seen in the office and found to have a symptomatic left inguinal hernia, which was reducible. There is also a possible right inguinal hernia. He is also in need of a screening colonoscopy. He has not had a colonoscopy up to this point in his life. He does not report any red blood per rectum nor any dark tarry stools. DESCRIPTION OF PROCEDURE: The patient was brought to the operating room, laid supine on the table. After adequate IV pain and sedative medications and general endotracheal intubation with infraumbilical rim was anesthetized using 0.5% Marcaine with epinephrine and a transverse skin incision made using a 15 blade. A sharp towel clamp was placed on the skin and the abdominal wall retracted anteriorly and a Veress needle inserted with a low opening pressure of 0 mmHg and the abdomen was then insufflated to 15 mmHg pressure. The Veress needle removed and a 10 mm Xcel trocar placed followed by a 10 mm 45-degree angle laparoscope visualizing the peritoneal cavity. A 4-quadrant abdominal exploration was performed. There was a left indirect inguinal hernia, which was reducible. There was no right inguinal hernia component. There are no peritoneal implants. There were extensive adhesions of the upper abdomen from his previous chevron incision and pancreatectomy. Under direct visualization, we then proceeded to place bilateral 5 mm ports after the skin and peritoneal lining were anesthetized using 0.5% Marcaine with epinephrine and a transverse skin incision was made using a 15 blade. The patient was then placed into Trendelenburg position and the mesenteric lining was then opened starting laterally using a Sonicision towards the conjoined tendon and inguinal ligament. We then proceeded medially till we reached Daniel's ligament. The peritoneal lining as well as the hernia sac were then dissected inferiorly identifying the cord and its surrounding contents and sparing these structures. This was done using blunt dissection as well as the Sonicision. Good hemostasis was observed. A medium size 3DMax polypropylene mesh was then placed into the peritoneal cavity through the 10 mm port site and tacked to Daniel's ligament medially and the conjoint tendon laterally with absorbable tacks. The peritoneal lining was then placed over the mesh and a few absorbable tacks placed to hold this in place with visualization of good hemostasis. The 10 mm port site fascia and peritoneum were then closed under direct visualization using a Marciano-Lennie device and 0 Vicryl suture. The abdomen was desufflated and remaining ports removed. All skin incisions were closed using 4-0 Monocryl running subcuticular sutures. Wounds were then cleaned and covered with Dermabond. Under the same anesthesia, we then proceeded with the colonoscopy portion of the procedure. The patient was explained placed in frog leg position. A digital rectal examination was performed, which revealed mild chronic stage I external and internal hemorrhoids, not actively edematous nor inflamed and no bleeding. Normal sphincter tone was felt and there were no palpable masses. Prostate gland was palpable and appeared normal. The endoscope was then intubated to the anus and rectum gently insufflated. The endoscope was then advanced to the valves of Peters of the rectum with no polyps or any neoplasms identified. We then proceeded to the sigmoid colon where no diverticulosis identified. Endoscope was then advanced to the remainder of the descending, transverse and ascending colon to the cecum. These segments were normal. There were no polyps or any neoplasms identified throughout the colon or rectum. The endoscope was then slowly withdrawn while taking a second look and suctioning of residual air with no additional findings. The patient tolerated the procedure well. We will start IV normal pain medication as well as a clear liquid diet. Once he is tolerating clears, has good pain control with oral pain medication and is ambulating well, we will discharge him home. He will be instructed to do no heavy lifting or exertion for the next two weeks and then slowly incorporate some activity until 6 weeks from the surgery date. Job ID: [id number] DocumentID: [id number] Dictated Date: 07/16/2019 13:28:16 [employer] Supervisor Date: 07/16/2019 14:43:02 Dictated By: HEIDY GARCIA MD
--- NOTE | 2019-07-16 15:08 | Anesthesia-General Post-Op ---
General Patient Condition Mental Status/LOC: Same as Preop Cardiovascular: Satisfactory Nausea/Vomiting: Absent Respiratory: Satisfactory Pain: Controlled Complications: Absent Post Op Complications Complications None Follow Up Care/Instructions Patient Instructions None needed. Anesthesia/Patient Condition Patient Condition Patient is doing well, no complaints, stable vital signs, no apparent adverse anesthesia problems. No complications reported per nursing. MEÑO CHAVEZ CRNA Jul 16, 2019 15:08 POS
== END 2019-07-16 15:45 | disposition home or self-care (01) ==
LOC: SDC 08:45
PROVIDERS: ATTEND Surgery
DX: Z12.11 Encounter for screening for malignant neoplasm of colon (principal); K40.90 Unilateral inguinal hernia, without obstruction or gangrene, not specified as recurrent; K64.1 Second degree hemorrhoids; K64.8 Other hemorrhoids; M19.90 Unspecified osteoarthritis, unspecified site; E11.9 Type 2 diabetes mellitus without complications; F41.9 Anxiety disorder, unspecified; Z90.49 Acquired absence of other specified parts of digestive tract; Z79.899 Other long term (current) drug therapy; Z79.84 Long term (current) use of oral hypoglycemic drugs; F17.210 Nicotine dependence, cigarettes, uncomplicated; Z80.8 Family history of malignant neoplasm of other organs or systems; Z80.42 Family history of malignant neoplasm of prostate; Z82.49 Family history of ischemic heart disease and other diseases of the circulatory system; Z85.07 Personal history of malignant neoplasm of pancreas; Z86.711 Personal history of pulmonary embolism; Z80.41 Family history of malignant neoplasm of ovary
CPT/HCPCS: 49650; G0105; 36415; 82962; 85025; 87081

== ENCOUNTER 2019-09-12 00:51 | Emergency (ER) | payer MEDICARE ==
[~2019-09-12] VITALS: Ht 165.1 cm; Wt 71.0 kg
[~2019-09-12 00:51] MED LIST changes: +HYDR-3820 PO
[2019-09-12 01:50] LABS: BASOPHILS # (AUTO) 0.1 10^3/uL (0.0-0.1); BASOPHILS % (AUTO) 1 % (0-10); EOSINOPHILS % (AUTO) 5 % (0-10); HEMATOCRIT 44 % (40-54); HEMOGLOBIN 15.5 G/DL (13.3-17.7); LYMPHOCYTES # (AUTO) 4.3 X 10^3 (1.0-4.0); LYMPHOCYTES % (AUTO) 20 % (12-44); MEAN CORPUSCULAR HEMOGLOBIN 34 PG (25-34); MEAN CORPUSCULAR HGB CONC 35 G/DL (32-36); MEAN CORPUSCULAR VOLUME 98 FL (80-99); MEAN PLATELET VOLUME 8.6 FL (7.4-10.4); MONOCYTES # (AUTO) 2.3 X 10^3 (0.0-1.0); MONOCYTES % (AUTO) 11 % (0-12); NEUTROPHILS # (AUTO) 13.7 X 10^3 (1.8-7.8); NEUTROPHILS % (AUTO) 64 % (42-75); PLATELET COUNT 483 10^3/uL (130-400); RED CELL DISTRIBUTION WIDTH 12.9 % (10.0-14.5); WHITE BLOOD COUNT 21.3 10^3/uL (4.3-11.0)
[2019-09-12 02:00] LABS: BILIRUBIN,URINE NEGATIVE (NEGATIVE); CLARITY,URINE CLEAR; COLOR,URINE YELLOW; GLUCOSE, URINE (UA) NEGATIVE (NEGATIVE); KETONES,URINE NEGATIVE (NEGATIVE); LEUKOCYTE ESTERASE ,URINE NEGATIVE (NEGATIVE); NITRITE,URINE NEGATIVE (NEGATIVE); PROTEIN,URINE NEGATIVE (NEGATIVE)
[2019-09-12] MEDS ORDERED: methylPREDNISolone 125 MG (Solu-MEDROL) VIAL IVP ONE (02:00)
[2019-09-12 02:02] LABS: INR 0.9 (0.8-1.4); PROTHROMBIN TIME PATIENT 12.4 SEC (12.2-14.7)
[2019-09-12 02:10] LABS: BACTERIA,URINE TRACE /HPF
[2019-09-12 02:20] LABS: ALANINE AMINOTRANSFERASE 12 U/L (0-55); ALBUMIN 4.6 GM/DL (3.2-4.5); ALKALINE PHOSPHATASE 79 U/L (40-136); AMYLASE 81 U/L (25-125); BILIRUBIN,TOTAL 0.6 MG/DL (0.1-1.0); BUN/CREATININE RATIO 9; CALCIUM 8.9 MG/DL (8.5-10.1); CARBON DIOXIDE 20 MMOL/L (21-32); CHLORIDE 90 MMOL/L (98-107); CREATININE SERUM 0.64 MG/DL (0.60-1.30); GFR ESTIMATED > 60; GLUCOSE 89 MG/DL (70-105); LIPASE 53 U/L (8-78); MAGNESIUM 1.6 MG/DL (1.6-2.4); POTASSIUM 4.1 MMOL/L (3.6-5.0); SODIUM 126 MMOL/L (135-145); TOTAL PROTEIN 7.7 GM/DL (6.4-8.2)
[2019-09-12 02:28] LABS: ERYTHROCYTE SEDIMENTATION RATE 1 MM/HR (0-30)
[2019-09-12 02:41] LABS: EOSINOPHILS % (MANUAL) 2 %; LYMPHOCYTES % (MANUAL) 22 %; MONOCYTES % (MANUAL) 16 %; NEUTROPHILS % (MANUAL) 60 %
[2019-09-12] MEDS ORDERED: fentaNYL INJECTION 100 MCG/2 ML AMP IVP STA (02:44)
[2019-09-12] MEDS ORDERED: VANCOMYCIN INJECTION 1,000 MG in NS (IVPB) 250 ML IV ONE (02:45)
[2019-09-12] MEDS ORDERED: PIPERACILLIN/TAZOBACTAM (BULK) 4.5 GM in NS (IVPB) 100 ML IV ONE (02:45)
[2019-09-12] MEDS ORDERED: PIPERACILLIN/TAZO 4.5 GM VIAL (ZOSYN) IV ONE (03:17)
[2019-09-12] MEDS ORDERED: NS (IVPB) 100 ML ONE (03:18)
[2019-09-12] MEDS ORDERED: fentaNYL INJECTION 100 MCG/2 ML AMP IVP ONE (04:00)
[2019-09-12] MEDS ORDERED: morphine INJ 10 MG/ML 1ML (SYR OR VIAL) IVP STA (04:25)
--- NOTE | 2019-09-12 05:26 | ED General ---
General Chief Complaint: General Problems/Pain Stated Complaint: TYPE 2 DIABETES,LEFT ARM SWELLING,PANCREATIC CA Source of Information: Patient History of Present Illness Date Seen by Provider: Sep 12, 2019 Time Seen by Provider: 01:10 Initial Comments PT ARRIVES VIA POV FROM HOME, DROVE SELF HERE C/O SEVERE PAIN, REDNESS AND SWELLING TO LEFT HAND SINCE 1600 TODAY ADAMANTLY DENIES ANY INJURY TO THIS HAND DENIES FEVER C/O NUMBNESS TO FINGERTIPS STATES FOR THE LAST COUPLE OF WEEKS HE HAS HAD PAIN, REDNESS AND SWELLING TO KNUCKLES OF BOTH RIGHT AND LEFT HANDS, COMES AND GOES, AND MOVES FROM HAND TO HAND, TO RIGHT ELBOW, TO RIGHT SHOULDER, TO NECK, THEN DOWN TO LEFT KNEE, AND NOW IS IN ENTIRE LEFT HAND. DOES NOT CURRENTLY HAVE ANY SWELLING, REDNESS OR PAIN IN ANY OTHER JOINTS. HE STATES PRIOR TO THAT, HE HAS NOT HAD SIMILAR PROBLEMS PT IS RIGHT HANDED DENIES ANY UNUSUAL ACTIVITY, OVERUSE/REPETITIVE USE OF HANDS, ARMS, LEGS, ETC. TOOK 800 MG IBUPROFEN AT 2000 TONIGHT, WITHOUT RELIEF. HAS NOT SOUGHT CARE UNTIL TONIGHT. PT HAS HISTORY OF DIABETES, AND HAS BEEN PRESCRIBED METFORMIN, STATES HE SE Allergies and Home Medications Allergies Coded Allergies: No Known Drug Allergies (Unverified , 07/15/19) Home Medications Hydrocodone/Acetaminophen 1 Each Tablet, 0.5-1 TAB PO Q4H PRN for PAIN-MODERATE Prescribed by: SUMAYA HERRING on 07/16/19 1128 Lorazepam 1 Mg Tablet, 0.5 MG PO PRN, (Reported) Metformin HCl 500 Mg Tab.er.24, 1,000 MG PO BID, (Reported) TAKE 2 (500MG) TABS Past Gqrenva-Tbrulw-Yuhumg Hx Patient Social History Alcohol Beverage of Choice: Beer Type Used: Cigarettes 2nd Hand Smoke Exposure: Yes Recent Foreign Travel: No Contact w/Someone Who Travel: No Recent Hopitalizations: No Immunizations Up To Date Tetanus Booster (TDap): More than 5yrs Date of Pneumonia Vaccine: May 10, 2010 Seasonal Allergies Seasonal Allergies: No Past Medical History Surgeries: Yes (PANCREATIC, LIVER RESECTIONS, SPLEEN, UMB HERNIA REPAIR, R KNEE AND SHOULDE) Respiratory: Yes Pulmonary Embolism Currently Using CPAP: No Currently Using BIPAP: No Cardiac: No Neurological: No Reproductive Disorders: No Sexually Transmitted Disease: No HIV/AIDS: No Genitourinary: No Gastrointestinal: Yes (PANCREATIC LIVER CA) Musculoskeletal: No Endocrine: Yes Diabetes, Non-Insulin dep HEENT: Yes (GLASSES) Loss of Vision: Denies Hearing Impairment: Denies Cancer: Yes Liver, Pancreatic Did You Recieve Any Treatments: Yes What Type of Treatment Did You: Surgical Intervention Psychosocial: Yes Anxiety Integumentary: No Blood Disorders: No Adverse Reaction/Blood Tranf: No (N/A) Family Medical History COPD, Hypertension Physical Exam Vital Signs Vital Signs - First Documented 09/12/19 05:17 Pulse Ox 99 O2 Delivery Room Air Capillary Refill : Height, Weight, BMI Height: 5'5.00" Weight: 164lbs. oz. 74.060344da; 25.27 BMI Method:Actual Focused Exam Lactate Level 09/12/19 01:38: Lactic Acid Level 2.24*H 09/12/19 04:00: Lactic Acid Level 4.51*H 09/12/19 07:47: Lactic Acid Level 1.24 Lactic Acid Level Laboratory Tests Test 09/12/19 07:47 Lactic Acid Level 1.24 MMOL/L (0.50-2.00) Progress/Results/Core Measures Suspected Sepsis SIRS Temperature: Pulse: Respiratory Rate: Laboratory Tests 09/12/19 01:38: White Blood Count 21.3H Blood Pressure / Mean: 09/12/19 01:38: Lactic Acid Level 2.24*H 09/12/19 04:00: Lactic Acid Level 4.51*H 09/12/19 07:47: Lactic Acid Level 1.24 Laboratory Tests 09/12/19 01:38: Creatinine 0.64, INR Comment 0.9, Platelet Count 483H, Total Bilirubin 0.6 Results/Orders Lab Results Laboratory Tests Test 09/12/19 01:27 09/12/19 01:38 09/12/19 04:00 09/12/19 07:47 Range/Units Urine Color YELLOW Urine Clarity CLEAR Urine pH 7.0 5-9 Urine Specific [place] 1.010 L 1.016-1.022 Urine Protein NEGATIVE NEGATIVE Urine Glucose (UA) NEGATIVE NEGATIVE Urine Ketones NEGATIVE NEGATIVE Urine Nitrite NEGATIVE NEGATIVE Urine Bilirubin NEGATIVE NEGATIVE Urine Urobilinogen 0.2 < = 1.0 MG/DL Urine Leukocyte Esterase NEGATIVE NEGATIVE Urine RBC (Auto) NEGATIVE NEGATIVE Urine RBC NONE /HPF Urine WBC NONE /HPF Urine Squamous Epithelial Cells NONE /HPF Urine Crystals NONE /LPF Urine Bacteria TRACE /HPF Urine Casts NONE /LPF Urine Mucus NEGATIVE /LPF Urine Culture Indicated NO Urine Opiates Screen NEGATIVE NEGATIVE Urine Oxycodone Screen NEGATIVE NEGATIVE Urine Methadone Screen NEGATIVE NEGATIVE Urine Propoxyphene Screen NEGATIVE NEGATIVE Urine Barbiturates Screen NEGATIVE NEGATIVE Ur Tricyclic Antidepressants Screen NEGATIVE NEGATIVE Urine Phencyclidine Screen NEGATIVE NEGATIVE Urine Amphetamines Screen NEGATIVE NEGATIVE Urine Methamphetamines Screen NEGATIVE NEGATIVE Urine Benzodiazepines Screen NEGATIVE NEGATIVE Urine Cocaine Screen NEGATIVE NEGATIVE Urine Cannabinoids Screen NEGATIVE NEGATIVE White Blood Count 21.3 H 4.3-11.0 10^3/uL Red Blood Count 4.50 4.35-5.85 10^6/uL Hemoglobin 15.5 13.3-17.7 G/DL Hematocrit 44 40-54 % Mean Corpuscular Volume 98 80-99 FL Mean Corpuscular Hemoglobin 34 25-34 PG Mean Corpuscular Hemoglobin Concent 35 32-36 G/DL Red Cell Distribution Width 12.9 10.0-14.5 % Platelet Count 483 H 130-400 10^3/uL Mean Platelet Volume 8.6 7.4-10.4 FL Neutrophils (%) (Auto) 64 42-75 % Lymphocytes (%) (Auto) 20 12-44 % Monocytes (%) (Auto) 11 0-12 % Eosinophils (%) (Auto) 5 0-10 % Basophils (%) (Auto) 1 0-10 % Neutrophils # (Auto) 13.7 H 1.8-7.8 X 10^3 Lymphocytes # (Auto) 4.3 H 1.0-4.0 X 10^3 Monocytes # (Auto) 2.3 H 0.0-1.0 X 10^3 Eosinophils # (Auto) 1.0 H 0.0-0.3 10^3/uL Basophils # (Auto) 0.1 0.0-0.1 10^3/uL Neutrophils % (Manual) 60 % Lymphocytes % (Manual) 22 % Monocytes % (Manual) 16 % Eosinophils % (Manual) 2 % Erythrocyte Sedimentation Rate 1 0-30 MM/HR Prothrombin Time 12.4 12.2-14.7 SEC INR Comment 0.9 0.8-1.4 Activated Partial Thromboplast Time 32 24-35 SEC Sodium Level 126 L 135-145 MMOL/L Potassium Level 4.1 3.6-5.0 MMOL/L Chloride Level 90 L 98-107 MMOL/L Carbon Dioxide Level 20 L 21-32 MMOL/L Anion Gap 16 H 5-14 MMOL/L Blood Urea Nitrogen 6 L 7-18 MG/DL Creatinine 0.64 0.60-1.30 MG/DL Estimat Glomerular Filtration Rate > 60 BUN/Creatinine Ratio 9 Glucose Level 89 70-105 MG/DL Glucometer 95 70-110 MG/DL Lactic Acid Level 2.24 *H 4.51 *H 1.24 0.50-2.00 MMOL/L Uric Acid 3.8 2.6-7.2 MG/DL Calcium Level 8.9 8.5-10.1 MG/DL Corrected Calcium 8.5-10.1 MG/DL Magnesium Level 1.6 1.6-2.4 MG/DL Total Bilirubin 0.6 0.1-1.0 MG/DL Aspartate Amino Transf (AST/SGOT) 24 5-34 U/L Alanine Aminotransferase (ALT/SGPT) 12 0-55 U/L Alkaline Phosphatase 79 40-136 U/L C-Reactive Protein High Sensitivity 0.24 0.00-0.50 MG/DL Total Protein 7.7 6.4-8.2 GM/DL Albumin 4.6 H 3.2-4.5 GM/DL Amylase Level 81 25-125 U/L Lipase 53 8-78 U/L Serum Alcohol 107 H <10 MG/DL My Orders Orders - ANDREW SETHI DO Accucheck Stat ONCE (09/12/19 01:10) Ed Iv/Invasive Line Start (09/12/19 01:10) Monitor-Rhythm Ecg Trace Only (09/12/19 01:10) Amylase (09/12/19 01:10) Cbc With Automated Diff (09/12/19 01:10) Comprehensive Metabolic Panel (09/12/19 01:10) Lactic Acid Analyzer (09/12/19 01:10) Lipase (09/12/19 01:10) Magnesium (09/12/19 01:10) Protime With Inr (09/12/19 01:10) Partial Thromboplastin Time (09/12/19 01:10) Ua Culture If Indicated (09/12/19 01:10) Hs C Reactive Protein (09/12/19 01:32) Erythrocyte Sedimentation Rate (09/12/19 01:32) Methylprednisolone Sod Succ (Solu-Medrol (09/12/19 02:00) Manual Differential (09/12/19 01:38) Uric Acid (09/12/19 01:57) Piperacillin/Tazobactam (Bulk) (Zosyn In (09/12/19 02:45) Vancomycin Injection (Vancomycin Injecti (09/12/19 02:45) Fentanyl Injection (Sublimaze Injection (09/12/19 02:44) Piperacillin Sodium/Tazobactam (Zosyn Vi (09/12/19 03:17) Ns (Ivpb) (Sodium Chloride 0.9% Ivpb Bag (09/12/19 03:18) Fentanyl Injection (Sublimaze Injection (09/12/19 04:00) Morphine Injection (Morphine Injection (09/12/19 04:25) Hand, Left, 3 Views (09/12/19 05:47) Alcohol (09/12/19 05:47) Drug Screen Stat (Urine) (09/12/19 05:47) Ed Iv/Invasive Line Start (09/12/19 05:56) Ns Iv 1000 Ml (Sodium Chloride 0.9%) (09/12/19 05:56) Nicotine Patch (Nicoderm Patch) (09/12/19 06:30) Ed Iv/Invasive Line Start (09/12/19 06:27) Ns Iv 1000 Ml (Sodium Chloride 0.9%) (09/12/19 06:27) Lactic Acid Analyzer (09/12/19 06:27) Medications Given in ED Current Medications Medications Dose Ordered Sig/Lorena Route Start Time Stop Time Status Last Admin Dose Admin Fentanyl Citrate 50 mcg ONCE ONCE IVP 09/12/19 04:00 09/12/19 04:01 DC 09/12/19 04:07 50 MCG Methylprednisolone Sodium Succinate 125 mg ONCE ONCE IVP 09/12/19 02:00 09/12/19 02:01 DC 09/12/19 02:20 125 MG Nicotine 21 mg ONCE ONCE TD 09/12/19 06:30 09/12/19 06:31 DC 09/12/19 06:31 21 MG Piperacillin Sod/ Tazobactam Sod 4.5 gm/Sodium Chloride 120 ml @ 200 mls/hr ONCE ONCE IV 09/12/19 02:45 1/4/20 03:21 DC 09/12/19 03:34 200 MLS/HR Vancomycin HCl 1000 mg/Sodium Chloride 250 ml @ 250 mls/hr ONCE ONCE IV 09/12/19 02:45 09/12/19 03:44 DC 09/12/19 04:08 250 MLS/HR Vital Signs/I&O 09/12/19 05:17 Pulse Ox 99 O2 Delivery Room Air Capillary Refill : Progress Note : Progress Note PT DECLINES XRAYS OR CT. PT STATES ON ARRIVAL THAT HE DOES NOT WANT TO BE ADMITTED. PT STATES THAT "HE WILL JUST FOLLOW UP WITH [facility]" --I ADVISED PT THAT I COULD NOT TRANSFER PT TO [facility], THERE ARE OTHER [facility] FACILITIES WITH CAPABILITY OF CARING FOR HIM. ALSO ADVISED HIM THAT HE NEEDED INPATIENT CARE, NOT "FOLLOW UP" AN OFFICE VISIT, AT AN UNKNOWN POINT IN THE FUTURE. DURING COURSE OF ER STAY, PT RELUCTANTLY AGREES TO ADMIT. STATES NO RELIEF WITH SOLU-MEDROL, FENTANYL OR MORPHINE, YET IS SMILING AND PLEASANT THROUGHOUT ER STAY. Departure Communication (Admissions) 0425--PT NOW RELUCTANTLY AGREES TO ADMIT, AFTER MUCH DISCUSSION. 0427--SPOKE WITH DR. LAGUERRE, HOSPITALIST. SHE DECLINES ADMIT, NO ORTHOPEDIC COVERAGE ALL WEEKEND. ADVISES TRANSFER 0436--CALLED [facility]. 0446--SPOKE WITH DR. JIMENEZ, HOSPITALIST, HE DECLINES TRANSFER, THEY DO NOT HAVE HAND SURGEON COVERAGE. 0447--CALLED [facility]ALVE[facility]. [facility]. 0456--SPOKE WITH DR. AGUILAR, HOSPITALIST, HE DECLINES TRANSFER, THEY DO NOT HAVE HAND SURGEON COVERAGE. 0500--DISCUSSED ALL OF THE ABOVE WITH THE PATIENT. ADVISED THAT [facility] AND WOULD BE NEXT OPTIONS. PT NOW DECLINES ANY ADMIT OR TRANSFER. STRONGLY ADVISED PT THAT HE NEEDED INPATIENT IV ANTIBIOTICS, AND HE DECLINES, STATING THAT HE "WILL JUST SEE HOW IT IS IN A COUPLE OF DAYS". PT STATES HE JUST WANTS TO GO HOME. PT SIGNING OUT AMA. 0541--PT HAS CALLED HIS SISTER, WHO HAS NOW ARRIVED, AND ALL TEST RESULTS REVIEWED, AND DISCUSSED NEED FOR TRANSFER. SHE ADVISES THAT PT SHOULD BE ADMITTED, AND ADVISES AREA WOULD BE MOST CONVENIENT. 0547--CALLED , THEY WILL CALL BACK. PT NOW STATES HE IS VERY ANXIOUS AND WANTS SOMETHING TO CALM HIM DOWN. WANTS TO GO OUT TO VEHICLE. ADVISED THAT THIS WAS NOT AN OPTION. OFFERED NICOTINE PATCH. 08--CALLED [facility] WITH REPEAT LACTIC ACID LEVEL. NO ADDITIONAL ORDERS AT THIS TIME. BED NUMBER AND REPORT NUMBER GIVEN TO RN. Impression Primary Impression: CELLULITIS LEFT HAND INCLUDING FINGERS AND THUMB Additional Impressions: NIDDM Sepsis Disposition: 02 XFER SHT-TRM HOSP Condition: Stable Transfer Transfer Reason: Exceeds level of care Transfer Facility: Method of Transfer: EMS Departure-Patient Inst. Referrals: ALEJANDRA COVARRUBIAS DO (PCP/Family) Primary Care Physician ANDREW SETHI DO Sep 12, 2019 05:26
[2019-09-12] MEDS ORDERED: NS IV 1000 ML 1,000 ML IV SCH ×2 (05:56→06:27)
[2019-09-12 06:22] LABS: AMPHETAMINE SCREEN, URINE NEGATIVE (NEGATIVE); BARBITURATE SCREEN URINE NEGATIVE (NEGATIVE); BENZODIAZEPINES SCREEN URINE NEGATIVE (NEGATIVE); CANNABINOID SCREEN, URINE NEGATIVE (NEGATIVE); COCAINE SCREEN URINE NEGATIVE (NEGATIVE); METHADONE STAT NEGATIVE (NEGATIVE); METHAMPHETAMINE SCREEN URINE S NEGATIVE (NEGATIVE); OPIATE SCREEN URINE NEGATIVE (NEGATIVE); OXYCODONE STAT NEGATIVE (NEGATIVE); PROPOXYPHENE STAT NEGATIVE (NEGATIVE); TRICYCLIC ANTIDEPRESSANTS SCRE NEGATIVE (NEGATIVE)
[2019-09-12] MEDS ORDERED: NICOTINE 21 MG (NICODERM) PATCH TD ONE (06:30)
--- NOTE | 2019-09-12 07:12 | Diagnostic Imaging Report ---
INDICATION: Redness and swelling COMPARISON: None available TECHNIQUE: 3 radiographs of the left hand dated 09/12/2019 FINDINGS: No acute fracture or dislocation. No destructive osseous process. Carpal alignment is well-maintained. Mild scattered degenerative changes. Diffuse soft tissue swelling of the hand. No suspicious radiopaque foreign body. IMPRESSION: Diffuse soft tissue swelling of the hand without acute osseous abnormality. Mild degenerative changes. Dictated by: Dictated on workstation # [id number]
[2019-09-12 09:09] VITALS: BP 176/98
== END 2019-09-12 09:22 | disposition short-term general hospital (02) ==
LOC: EDUNIT# 00:51 → ER 00:55
DX: A41.9 Sepsis, unspecified organism (principal); L03.114 Cellulitis of left upper limb; E11.9 Type 2 diabetes mellitus without complications; F41.9 Anxiety disorder, unspecified; Z79.84 Long term (current) use of oral hypoglycemic drugs; Z77.22 Contact with and (suspected) exposure to environmental tobacco smoke (acute) (chronic); Z86.711 Personal history of pulmonary embolism; Z85.07 Personal history of malignant neoplasm of pancreas; Z85.05 Personal history of malignant neoplasm of liver; Z82.49 Family history of ischemic heart disease and other diseases of the circulatory system
CPT/HCPCS: 36415; 73130; 80053; 80306; 80320; 81000; 82150; 82962; 83605; 83690; 83735; 84550; 85007; 85027; 85610; 85652; 85730; 86141; 93041; 94760; 96361; 96365; 96367; 96375; 96376

== ENCOUNTER → 2019-10-29 | Outpatient (CLI) | payer MEDICARE ==
[~2019-10-29] MED LIST changes: +CATHETER FLUSH 10 ML SYR IV PRN; +HOLD METFORMIN - RECEIVED CONTRAST 20 ML VIAL IV SCH; +IOHEXOL 350 MG/ML 100 ML (OMNIPAQUE 350) VIAL IV ONE; +NS 100 ML (IVPB) BAG IV ONE
--- NOTE | 2019-10-29 11:53 | Diagnostic Imaging Report ---
PROCEDURE: CT chest, abdomen, and pelvis with contrast. TECHNIQUE: Multiple contiguous axial images were obtained through the chest, abdomen, and pelvis after the administration of intravenous contrast. Auto Exposure Controls were utilized during the CT exam to meet ALARA standards for radiation dose reduction. INDICATION: Pancreatic carcinoma. FINDINGS: The previous CT chest, abdomen and pelvis exam of 02/17/2019 noted that the body and tail of the pancreas had been surgically resected. There had also been a prior splenectomy, cholecystectomy and partial resection of the left lobe of the liver. The previous exam also noted a small irregular low density cleft in the right lower lobe. All those findings are again evident and do not seem to have changed significantly. The liver remains generally homogeneous and stable in size. The adrenals, the kidneys, the aorta and inferior vena cava are unremarkable for an acute abnormality. The stomach is not well-distended and consequently difficult to assess. The small bowel and colon appear similar to the prior exam. The urinary bladder is not fully distended and consequently difficult to assess. There is no obvious bladder abnormality evident. The prostate gland does not appear to be enlarged. The appendix was visualized and is not abnormally thickened. The images through the thorax show the heart size is within normal limits and stable when compared to the prior exam. Sparse coronary artery calcifications are evident. There is no defect within the pulmonary arteries to indicate a pulmonary embolus although the pulmonary arteries are not fully opacified. The aorta is not abnormally dilated. There is no mediastinal or hilar adenopathy. The previous exam did note a 4.7 mL opacity in the right upper lung. That finding cannot be identified with certainty on this exam. There is a small 3.3 mm opacity along the periphery of the right upper lobe (image 31 of 49). This finding was also present on prior exam and has not changed. The lungs are otherwise generally clear. The thyroid gland is not enlarged. The bone windows show no evidence for a fracture or for a destructive lesion. IMPRESSION: The appearance of the chest, abdomen and pelvis is stable when compared to the prior exam. No new abnormality has developed. Dictated by: Dictated on workstation # [id number]
== END ==
LOC: RAD 10:50
PROVIDERS: ATTEND Internal Medicine
DX: C25.9 Malignant neoplasm of pancreas, unspecified (principal); M05.79 Rheumatoid arthritis with rheumatoid factor of multiple sites without organ or systems involvement
CPT/HCPCS: 71260; 74177

== ENCOUNTER → 2020-03-15 | Outpatient (CLI) | payer MEDICARE ==
[~2020-03-15] MED LIST changes: +ACHYD1T PO; -HYDR-3820 PO
[2020-03-15 13:04] LABS: BUN/CREATININE RATIO 7; CREATININE SERUM 0.67 MG/DL (0.60-1.30); GFR ESTIMATED > 60
--- NOTE | 2020-03-15 14:41 | Diagnostic Imaging Report ---
PROCEDURE: CT abdomen and pelvis with contrast. TECHNIQUE: Multiple contiguous axial images were obtained through the abdomen and pelvis after administration of intravenous contrast. Auto Exposure Controls were utilized during the CT exam to meet ALARA standards for radiation dose reduction. INDICATION: Pancreatic cancer. COMPARISON: Correlation is made with prior CT from 10/29/2019. FINDINGS: The lung bases are clear. Postsurgical changes involving the left lobe of the liver are again noted. Small low density in right lobe of the liver peripherally is unchanged. No discrete liver mass is detected. The gallbladder is surgically absent. There is no biliary duct dilatation. Postsurgical changes involving the pancreatic body and tail are again noted. Pancreatic head is unremarkable. No discrete mass is detected. The spleen is surgically absent. No adrenal mass is detected. Kidneys are unremarkable. Aorta is nonaneurysmal. Visualized small and large bowel loops are normal caliber. There is no obstruction. No central retroperitoneal or mesenteric lymphadenopathy is seen. There is no free fluid or fluid collection. No definite inguinal or iliac lymphadenopathy is seen. The bladder is unremarkable. The prostate appears stable. Bony structures are nonacute. IMPRESSION: Stable CT abdomen and pelvis since exam from 10/29/2019. No residual or recurrent pancreatic mass is detected. No abdominal or pelvic lymphadenopathy or evidence of metastatic disease is detected. Dictated by: Dictated on workstation # [id number]
== END ==
LOC: RAD 12:20
PROVIDERS: ATTEND Internal Medicine
DX: C25.9 Malignant neoplasm of pancreas, unspecified (principal); Z90.49 Acquired absence of other specified parts of digestive tract; Z98.890 Other specified postprocedural states
CPT/HCPCS: 36415; 74177; 82565; 84520

== ENCOUNTER → 2020-06-21 | Outpatient (CLI) | payer MEDICARE ==
--- NOTE | 2020-06-21 11:04 | Diagnostic Imaging Report ---
PROCEDURE: CT chest, abdomen, and pelvis with contrast. TECHNIQUE: Multiple contiguous axial images were obtained through the chest, abdomen, and pelvis after the administration of intravenous contrast. Auto Exposure Controls were utilized during the CT exam to meet ALARA standards for radiation dose reduction. INDICATION: Pancreatic cancer COMPARISON: 03/15/2020, 10/29/2019, and 03/13/2018 FINDINGS: No significant adenopathy in the chest. No aneurysmal dilatation of thoracic aorta. Minimal scattered vascular calcifications. The heart is within normal limits in size. No pericardial effusion. No pleural effusion. No pneumothorax. A new 7 mm pleural-based pulmonary nodule is noted within the medial aspect of the right upper lobe, best seen on series 2, image 13 and series 601 image 32. This was not seen on the prior exams. The lungs are otherwise clear. The trachea is patent. No acute osseous abnormality within the chest. Postsurgical changes associated with the left hepatic lobe. Resultant hypertrophy of the right hepatic lobe. Cholecystectomy. No focal hepatic lesion. The spleen is not visualized. The adrenal glands are unremarkable. Post surgical changes involving the body and tail of the pancreas are again noted as they are not visualized. The common bile duct is not dilated. No intrahepatic biliary dilatation. The kidneys are unremarkable. Mild vascular calcifications without aneurysmal dilatation of the abdominal aorta. Mural thickening of the urinary bladder, similar to prior exams. The appendix is unremarkable. No bowel obstruction or pneumatosis. No significant adenopathy, free air, or free fluid within the abdomen or pelvis. Stable mild mural thickening of the duodenum. Scattered osseous degenerative changes without acute osseous abnormality. IMPRESSION: Interval development of an indeterminant 7 mm pleural-based right upper lobe pulmonary nodule medially. A follow-up CT of the chest is recommended in 1-3 months to reevaluate as malignancy/metastatic disease cannot be excluded. Given small size, PET CT would likely not be beneficial. Additionally, given small size and location, biopsy would be likely technically difficult or impossible. Stable postsurgical changes within the abdomen, without new adenopathy or mass lesion within the abdomen or pelvis. Stable mural thickening of the urinary bladder. Stable mural thickening of the duodenum, likely related to posttreatment changes. Dictated by: Dictated on workstation # [id number]
== END ==
LOC: RAD 09:45
PROVIDERS: ATTEND Internal Medicine
DX: C25.9 Malignant neoplasm of pancreas, unspecified (principal); R91.1 Solitary pulmonary nodule; N32.89 Other specified disorders of bladder; K31.89 Other diseases of stomach and duodenum; Z98.890 Other specified postprocedural states
CPT/HCPCS: 71260; 74177

== ENCOUNTER → 2020-09-19 | Outpatient (CLI) | payer MEDICARE ==
[2020-09-19 13:30] LABS: CREATININE SERUM 0.76 MG/DL (0.60-1.30); GFR ESTIMATED > 60
[2020-09-19 13:31] LABS: BUN/CREATININE RATIO 11
--- NOTE | 2020-09-19 14:16 | Diagnostic Imaging Report ---
PROCEDURE: CT chest with contrast only. TECHNIQUE: Multiple contiguous axial images were obtained through the chest after administration of intravenous contrast. Auto Exposure Controls were utilized during the CT exam to meet ALARA standards for radiation dose reduction. INDICATION: Pulmonary nodule, history of pancreatic carcinoma. The recent CT chest, abdomen and pelvis exam of 06/21/2020 noted a 7 mm pleural-based nodule along the medial most aspect of the right upper lobe. On this exam, that finding is again evident and does not appear to have changed adversely. This lesion now measures 6.2 mm and has a generally smooth border. This may well represent a benign process. Even so, a short-term (3-month) follow-up CT chest exam would be recommended for further study. The overall appearance of the chest has not changed adversely otherwise. There is no acute cardiopulmonary abnormality noted and there is no other sign of neoplastic disease. The heart size is within normal limits. The aorta is not abnormally dilated and there is no sign of dissection. There is no defect within the pulmonary arteries to indicate a pulmonary embolus. The sections through the upper abdomen failed to show any sign of an acute abnormality. The postsurgical changes involving the liver are again noted and no different. The bone windows are unremarkable for a fracture or for a destructive lesion. IMPRESSION: 1. The small nodule along the medial aspect of the right upper lobe seen previously appears stable. The fact that this finding has not changed significantly since the prior exam would suggest it is not related to an aggressive neoplastic process. Recommendations as above. 2. There is no acute cardiopulmonary abnormality noted. 3. These results were discussed with Dr. Sammy Herrera. Dictated by: Dictated on workstation # [id number]
== END ==
LOC: RAD 12:53
PROVIDERS: ATTEND Internal Medicine
DX: R91.1 Solitary pulmonary nodule (principal); Z85.07 Personal history of malignant neoplasm of pancreas
CPT/HCPCS: 36415; 71260; 82565; 84520

== ENCOUNTER → 2020-12-30 | Outpatient (CLI) | payer MEDICARE ==
[2020-12-30 12:37] LABS: BUN/CREATININE RATIO 13; CREATININE SERUM 0.83 MG/DL (0.60-1.30); GFR ESTIMATED > 60
--- NOTE | 2020-12-30 13:19 | Diagnostic Imaging Report ---
PROCEDURE: CT chest, abdomen, and pelvis with contrast. TECHNIQUE: Multiple contiguous axial images were obtained through the chest, abdomen, and pelvis after the administration of intravenous contrast. Auto Exposure Controls were utilized during the CT exam to meet ALARA standards for radiation dose reduction. DATE: December 30, 2020. COMPARISON: CT chest September 19, 2020. CT chest, abdomen, and pelvis June 21, 2020. INDICATION: 55-year-old male, pulmonary nodule. History of pancreatic cancer. FINDINGS: There are mild linear opacities in the right middle lobe most consistent with very mild scarring and/or atelectasis. There is a 6 mm pleural-based right upper lobe pulmonary nodule on axial image 27. This is stable since June 21, 2020. This is new since October 29, 2019. There is no new or enlarging pulmonary nodule since the most recent comparison exam. There is very mild dependent atelectasis in the right and left lower lobes. There is no additional focal airspace consolidation. There is no pneumothorax. There is no pleural effusion. The central airways are patent. There is no identified central pulmonary embolus. The heart is not enlarged. There is no pericardial effusion. There is no identified abnormally enlarged mediastinal, hilar, or axillary lymph node specifically meeting CT size criteria for adenopathy. There is a peripherally calcified left thyroid nodule measuring 9 mm in size on axial image 14. The patient is status post partial left hepatectomy. The liver is unremarkable in size and contour. There is no identified focal concerning liver lesion. The main and right portal veins are patent. The patient is status post cholecystectomy. There is no biliary ductal dilation. There are postoperative changes of the pancreas. There is persistent pancreatic parenchyma in the region of the pancreatic head and uncinate process. The body and tail of the pancreas are absent. The spleen is absent. The adrenal glands are unremarkable. Unremarkable appearance of the renal parenchyma. The urinary collecting systems are not distended. There is no identified renal or ureteral stone. Urinary bladder is unremarkable. The intestinal tract is not distended. The appendix is unremarkable. There is no free intraperitoneal air. There is no drainable fluid collection. There is no free pelvic fluid. There are atherosclerotic calcifications. There is no identified abnormally enlarged lymph node in the abdomen or pelvis meeting CT size criteria for adenopathy. There is a right-sided os acetabula. There are multilevel degenerative changes of the spine. There is no identified bone lesion concerning for a bone metastasis. IMPRESSION: CT chest, abdomen, and pelvis. 1. 6 mm right upper lobe pulmonary nodule which is stable since June 21, 2020 although new since October 29, 2019. Recommend continued followup CT imaging in 6 months to evaluate for continued stability. 2. Postoperative absence of the body and tail of the pancreas and spleen. Status post partial left hepatectomy. 3. No evidence of residual or recurrent malignancy or metastatic disease within the abdomen or pelvis. Dictated by: Dictated on workstation # [id number]
== END ==
LOC: RAD 13:15
PROVIDERS: ATTEND Internal Medicine
DX: R91.1 Solitary pulmonary nodule (principal); R10.11 Right upper quadrant pain; Z85.07 Personal history of malignant neoplasm of pancreas; Z98.890 Other specified postprocedural states; Z90.89 Acquired absence of other organs; Z90.411 Acquired partial absence of pancreas
CPT/HCPCS: 36415; 71260; 74177; 82565; 84520

== ENCOUNTER → 2021-04-04 | Outpatient (CLI) | payer MEDICARE ==
[~2021-04-04] MED LIST changes: -CATHETER FLUSH 10 ML SYR IV PRN
[2021-04-04 11:27] LABS: CREATININE SERUM 0.66 MG/DL (0.60-1.30)
[2021-04-04 11:32] LABS: HEMATOCRIT 43 % (40-54); HEMOGLOBIN 15.7 g/dL (13.3-17.7); MEAN CORPUSCULAR HEMOGLOBIN 36 pg (25-34); MEAN CORPUSCULAR HGB CONC 36 g/dL (32-36); MEAN CORPUSCULAR VOLUME 98 fL (80-99); PLATELET COUNT 355 10^3/uL (130-400); WHITE BLOOD COUNT 16.1 10^3/uL (4.3-11.0)
[2021-04-04 11:50] LABS: ANISOCYTOSIS SLIGHT; EOSINOPHILS % (MANUAL) 2 %; LYMPHOCYTES % (MANUAL) 34 %; MICROCYTOSIS SLIGHT; MONOCYTES % (MANUAL) 11 %; NEUTROPHILS % (MANUAL) 52 %; POLYCHROMASIA SLIGHT
--- NOTE | 2021-04-04 13:07 | Diagnostic Imaging Report ---
PROCEDURE: CT abdomen, and pelvis with contrast. TECHNIQUE: Multiple contiguous axial images were obtained through the abdomen, and pelvis after the administration of intravenous contrast. Auto Exposure Controls were utilized during the CT exam to meet ALARA standards for radiation dose reduction. INDICATION: Pulmonary nodule. FINDINGS: There is been partial left hepatectomy without evidence of mass lesion or adverse change in the remaining liver parenchyma. Gallbladder is surgically absent. There are numerous venous collaterals surrounding the stomach as well as patent umbilical vein. There has been resection of the pancreatic body and tail without significant change compared to previous study. 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 No adrenal gland or renal lesion is identified. There is no evidence of free fluid within the abdomen. The appendix is unremarkable. Partially opacified urinary bladder has a normal appearance. There is no evidence of pathologically enlarged adenopathy. No free fluid is seen within the abdomen or pelvis. There is moderate aortoiliac atherosclerotic calcification. IMPRESSION: 1. Stable postoperative findings in the upper abdomen without evidence of acute abnormality or metastatic lesion. 2. Patient will return for additional imaging of the thorax. Dictated by: Dictated on workstation # [id number]
== END ==
LOC: RAD 12:15
PROVIDERS: ATTEND Internal Medicine
DX: C25.9 Malignant neoplasm of pancreas, unspecified (principal); R91.1 Solitary pulmonary nodule; Z98.890 Other specified postprocedural states
CPT/HCPCS: 36415; 71260; 74177; 82565; 84520; 85007

== ENCOUNTER → 2021-10-12 | Outpatient (CLI) | payer MEDICARE ==
[~2021-10-12] MED LIST changes: +CATHETER FLUSH 10 ML SYR IV PRN
[2021-10-12 15:26] LABS: CREATININE SERUM 0.67 MG/DL (0.60-1.30)
--- NOTE | 2021-10-12 16:21 | Diagnostic Imaging Report ---
PROCEDURE: CT chest, abdomen, and pelvis with contrast. TECHNIQUE: Multiple contiguous axial images were obtained through the chest, abdomen, and pelvis after the administration of intravenous contrast. Auto Exposure Controls were utilized during the CT exam to meet ALARA standards for radiation dose reduction. INDICATION: Lung nodule and pancreatic cancer. COMPARISON: Exam is compared with CT chest, abdomen, and pelvis dated 04/04/2021. FINDINGS: CHEST: Some minimal scarring in the right greater than left pulmonary apex is unchanged from prior. No measurable pulmonary nodule was found. No dominant or suspicious lung mass. No findings of pulmonary parenchymal metastases. Some minimal scarring in the right middle lobe is also chronic. No evidence for acute pneumonia or edema. No axillary, hilar, or mediastinal adenopathy. No destructive or suspicious bony lesion. There is no pleural or pericardial effusion. ABDOMEN AND PELVIS: Resection of the left hepatic lobe is present. Distal pancreatectomy and splenectomy noted. The residual pancreatic parenchyma shows a few punctate calcifications, stable. The gallbladder is surgically absent. No pathological distention of the bile ducts. The adrenal glands are negative. Unobstructed kidneys are unremarkable. There is an air-containing normal appendix. Urinary bladder is nonfocal. Its wall may be mildly thickened. This is equivocal, but in the appropriate scenario, mild cystitis could not be excluded. Aortoiliac atherosclerotic vascular calcifications but patent and nonaneurysmal. No mesenteric thrombus. No evidence for end organ ischemia. No lymphadenopathy. No suspicious lytic or sclerotic bony lesion. No findings of neoplastic recurrence or metastatic disease. IMPRESSION: 1. No findings to suggest neoplastic recurrence or metastatic disease to the chest, abdomen, or pelvis. 2. Stable postoperative findings with no acute appearing abnormality. Dictated by: Dictated on workstation # [id number]
== END ==
LOC: RAD 15:45
PROVIDERS: ATTEND Internal Medicine
DX: C25.9 Malignant neoplasm of pancreas, unspecified (principal); R91.1 Solitary pulmonary nodule
CPT/HCPCS: 36415; 71260; 74177; 82565; 84520

== ENCOUNTER → 2022-04-26 | Outpatient (CLI) | payer MEDICARE ==
[2022-04-26 08:28] LABS: CREATININE SERUM 0.93 MG/DL (0.60-1.30)
--- NOTE | 2022-04-26 09:10 | Diagnostic Imaging Report ---
EXAMINATION: CT abdomen and pelvis with intravenous contrast. TECHNIQUE: Multiple contiguous axial images were obtained through the abdomen and pelvis after the uneventful administration of intravenous contrast. All CT scans use one or more of the following dose optimizing techniques: automated exposure control, MA and/or KvP adjustment based on patient size and exam type or iterative reconstruction. HISTORY: PANCREATIC CANCER COMPARISON: 10/12/2021 FINDINGS: Lung bases: Bibasilar dependent atelectasis. Solid organs: Postsurgical changes of the liver. No suspicious hepatic lesion. The gallbladder is surgically absent. Surgical changes from splenectomy and distal pancreatectomy. The residual pancreas is unremarkable without ductal dilatation or suspicious enhancing lesion. No biliary ductal dilatation. Adrenal glands are normal. The kidneys are normal without hydronephrosis. Bowel: The stomach and small bowel are normal without obstruction. The colon and appendix are normal. Peritoneum: There is no intraperitoneal free fluid or free air. No suspicious lymphadenopathy. Vasculature: Calcification of the aorta without aneurysm. Musculoskeletal: Degenerative changes of the spine without suspicious osseous lesion or compression fracture. Pelvis: The prostate gland is normal. The urinary bladder is normal. IMPRESSION: 1. No findings of recurrent or metastatic disease within the chest, abdomen, or pelvis. Dictated by: Dictated on workstation # [id number]
== END ==
LOC: RAD 07:49
PROVIDERS: ATTEND Internal Medicine
DX: C25.9 Malignant neoplasm of pancreas, unspecified (principal); J98.11 Atelectasis; Z98.890 Other specified postprocedural states
CPT/HCPCS: 36415; 74177; 82565; 84520

== ENCOUNTER 2022-12-16 12:58 | Observation (INO) | payer MEDICARE, MEDICAID ==
[~2022-12-16] VITALS: Ht 167 cm; Wt 68.0 kg
[~2022-12-16 12:58] MED LIST changes: -CATHETER FLUSH 10 ML SYR IV PRN; -HOLD METFORMIN - RECEIVED CONTRAST 20 ML VIAL IV SCH; -IOHEXOL 350 MG/ML 100 ML (OMNIPAQUE 350) VIAL IV ONE; -NS 100 ML (IVPB) BAG IV ONE
[2022-12-16] MEDS ORDERED: NITROGLYCERIN 0.4 MG SL TABS BTL 25'S SL PRN ×2 (13:15→16:15)
[2022-12-16] MEDS ORDERED: ASPIRIN 81 MG CHEW (CHILDREN'S ASA) PO ONE (13:15)
[2022-12-16] MEDS ORDERED: NITROGLYCERIN 2% OINT 1 GM UNIT DOSE PACKET TOP ONE (13:15)
[2022-12-16 13:17] LABS: BASOPHILS # (AUTO) 0.1 10^3/uL (0.0-0.1); BASOPHILS % (AUTO) 1 % (0-10); EOSINOPHILS # (AUTO) 0.2 10^3/uL (0.0-0.3); EOSINOPHILS % (AUTO) 1 % (0-10); HEMATOCRIT 43 % (40-54); HEMOGLOBIN 15.7 g/dL (13.3-17.7); LYMPHOCYTES # (AUTO) 2.4 10^3/uL (1.0-4.0); LYMPHOCYTES % (AUTO) 11 % (12-44); MEAN CORPUSCULAR HEMOGLOBIN 35 pg (25-34); MEAN CORPUSCULAR HGB CONC 36 g/dL (32-36); MEAN CORPUSCULAR VOLUME 97 fL (80-99); MEAN PLATELET VOLUME 8.7 fL (9.0-12.2); MONOCYTES # (AUTO) 1.5 10^3/uL (0.0-1.0); MONOCYTES % (AUTO) 7 % (0-12); NEUTROPHILS # (AUTO) 17.5 10^3/uL (1.8-7.8); NEUTROPHILS % (AUTO) 80 % (42-75); PLATELET COUNT 368 10^3/uL (130-400); WHITE BLOOD COUNT 21.8 10^3/uL (4.3-11.0)
[2022-12-16 13:31] LABS: ALBUMIN 4.2 GM/DL (3.2-4.5)
[2022-12-16 13:32] LABS: CALCIUM 8.8 MG/DL (8.5-10.1)
[2022-12-16 13:35] LABS: BILIRUBIN,TOTAL 2.2 MG/DL (0.1-1.0)
[2022-12-16 13:36] LABS: PROTHROMBIN TIME PATIENT 13.3 SEC (12.2-14.7)
[2022-12-16 13:37] LABS: CREATININE SERUM 0.7 MG/DL (0.60-1.30)
[2022-12-16 13:40] LABS: LYMPHOCYTES % (MANUAL) 9 %; MAGNESIUM 1.6 MG/DL (1.6-2.4); MONOCYTES % (MANUAL) 11 %; NEUTROPHILS % (MANUAL) 80 %; PLATELET ESTIMATE ADEQUATE
[2022-12-16 13:41] LABS: RBC MORPH NORMAL
[2022-12-16] MEDS ORDERED: NS IV 1000 ML 1,000 ML IV SCH (13:45)
[2022-12-16 13:48] LABS: CREATINE KINASE MB 2.6 NG/ML (<6.6)
--- NOTE | 2022-12-16 13:52 | Diagnostic Imaging Report ---
INDICATION: Chest pain. Comparison is made with prior exam of 06/23/2015. FINDINGS: The heart size, mediastinal configuration, and pulmonary vascularity are within normal limits. There is no pleural effusion, pneumothorax, or pneumonia. The osseous structures are unremarkable. IMPRESSION: No acute cardiopulmonary abnormality. Dictated by: Dictated on workstation # [id number]
--- NOTE | 2022-12-16 13:54 | Diagnostic Imaging Report ---
PROCEDURE: CT head wo r/o stroke. TECHNIQUE: Multiple contiguous axial images were obtained through the brain without the use of intravenous contrast. Auto Exposure Controls were utilized during the CT exam to meet ALARA standards for radiation dose reduction. DATE: December 16, 2022. COMPARISON: MRI brain December 01, 2015. INDICATION: 57-year-old male, vision deficits. FINDINGS: There is no identified hyperdense vessel sign. The ventricles and cerebral spinal fluid spaces are of normal size and configuration for the patient's age. There is no mass effect or midline shift. There is no acute intracranial hemorrhage. There is no abnormal extra-axial fluid collection. There is an air-fluid level in the right maxillary sinus including areas of internal bubbly lucency. IMPRESSION: 1. No identified acute intracranial abnormality. 2. Findings concerning for acute right maxillary sinusitis. Recommend correlation clinically. Dictated by: Dictated on workstation # [id number]
--- NOTE | 2022-12-16 14:01 | ED Cardiac General ---
History of Present Illness General Chief Complaint: Chest Pain Stated Complaint: CHEST PAIN/VISION DISTURBANCE Nursing Triage Note: pt presents to ed via pov from home with complaints of chest tightness and vision issues starting at 1000 today. pt also reports diarrhea. pt reprots cp seems to have resolved since he arrived in ed. Source: patient, old records History of Present Illness Date Seen by Provider: Dec 16, 2022 Time Seen by Provider: 13:02 Initial Comments PT ARRIVES VIA POV FROM HOME PT STATES AROUND 10 AM TODAY, HE WAS OUTSIDE PLAYING WITH HIS DOG--HITTING TE [employer] BALLS--AND BEGAN HAVING LEFT SIDED CHEST PAIN RATES PAIN 6/10 AT WORST. PT IS NOT HAVING PAIN NOW. STATES IT WAS TIGHTNESS IN HIS CHEST ALSO STATES HE HAS BEEN HAVING WHAT FEELS LIKE "SEVERE HEARTBURN" --NOT NOW. HE ALSO BEGAN HAVING BLURRY VISION AT THAT TIME WELL NO SHORTNESS OF BREATH NO NAUSEA / VOMITING TODAY--DID HAVE NAUSEA YESTERDAY NO SWEATS NO SWELLING IN LEGS/FEET OR PAIN IN CALVES. HE HAS NOT EATEN TODAY, LAST FOOD INTAKE WAS AT DINNER YESTERDAY HE HAS HAD 75 OZ OF WATER THIS MORNING. NO HISTORY OF SIMILAR. PT HAS HISTORY OF PANCREATIC CANCER WITH LIVER METS--DX 2010--HAS HAD SEVERAL SURGERIES AND STATES HIS CA 19-9 HAS BEEN NORMAL, HE HAS NOT SEEN ONCOLOGY IN YEARS. HE IS ALSO TYPE 2 DIABETIC. HE STATES HIS LAST HGB A1C WAS 6.0. HE HAS BEEN PRESCRIBED METFORMIN, BUT STATES HE DOES NOT TAKE IT DAILY HE HAS BEEN DX WITH RHEUMATOID ARTHRITIS AND IS MAINTAINED ON PREDNISONE. NO OTHER MEDICATIONS FOR R.A--STATES HE HAS BEEN PRESCRIBED METHOTREXATE, BUT HAS NOT BEEN TAKING IT--STATES IT DOESN'T HELP. 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 HE HAS BEEN DX WITH HTN, BUT IS NOT TAKING ANY MEDICATIONS FOR BLOOD PRESSURE. HE HAS HAD ISSUES WITH HYPONATREMIA--STATES IS SODIUM WAS 120 LAST MONTH. HE DENIES ANY HISTORY OF HEART PROBLEMS HE HAS HAD A P.E. IN THE PAST. HE IS NOT ON ASPIRIN OR ANY ANTICOAGULATION. PT CONTINUES TO SMOKE UP TO 1 PPD PT DRINKS "A COUPLE" OF BEERS DAILY HE HAS HAD COVID VACCINE X 2 HE STATES HE HAD BOTH COVID AND INFLUENZA ABOUT 1 1/2 - 2 MONTHS AGO. WAS PRESCRIBED MOLNUPIRAVIR. Allergies and Home Medications Allergies Coded Allergies: No Known Drug Allergies (Unverified , 07/15/19) Patient Home Medication List Home Medication List Reviewed: Yes Hydrocodone Bit/Acetaminophen (HYDROcodone/APAP 10/325 TABLET) 1 Each Tablet, 0.5-1 TAB PO Q4H PRN for PAIN-MODERATE Prescribed by: SUMAYA HERRING on 07/16/19 1128 Lorazepam (Lorazepam) 1 Mg Tablet, 0.5 MG PO PRN, (Reported) Entered as Reported by: JASON ST on 07/15/19 1141 Metformin HCl (Metformin HCl ER) 500 Mg Tab.er.24, 1,000 MG PO BID, (Reported) Entered as Reported by: GLADYS LORENZO on 06/21/15 1422 Review of Systems Review of Systems Constitutional: no symptoms reported EENTM: See HPI, Blurred Vision Respiratory: No Symptoms Reported; Denies Cough, Denies Shortness of Air Cardiovascular: See HPI, Chest Pain; Denies Edema, Denies Irregular Heart Rate, Denies Lightheadedness, Denies Palpitations, Denies Syncope Gastrointestinal: See HPI; Denies Abdominal Pain, Denies Vomiting Genitourinary: No Symptoms Reported Musculoskeletal: no symptoms reported Skin: no symptoms reported Psychiatric/Neurological: No Symptoms Reported Endocrine: No Symptoms Reported Hematologic/Lymphatic: No Symptoms Reported Past Zxfndax-Vzcqck-Axwgnq Hx Patient Social History Tobacco Use?: Yes Tobacco type used: Cigarettes Smoking Status: Current Everyday Smoker Substance use?: No Alcohol Use?: Yes Alcohol type: Beer Alcohol Frequency: Daily Pt feels they are or have been: No Immunizations Up To Date Tetanus Booster (TDap): More than 5yrs Seasonal Allergies Seasonal Allergies: No Past Medical History Surgery/Hospitalization HX: pmh: ra, dm, pancreatic ca, low sodium, Surgeries: Yes (PANCREATIC, LIVER RESECTIONS, SPLEEN, ING HERNIA REPAIR, R KNEE & SHOULDER) Abdominal, Orthopedic, Pancreatic Respiratory: Yes (OFF COUMADIN SINCE 2016) Pulmonary Embolism Currently Using CPAP: No Currently Using BIPAP: No Cardiac: Yes Hypertension Neurological: No Reproductive Disorders: No Sexually Transmitted Disease: No HIV/AIDS: No Genitourinary: No Gastrointestinal: Yes (PANCREATIC CA WITH METS TO LIVER) Musculoskeletal: Yes Rheumatoid Arthritis Endocrine: Yes Diabetes, Non-Insulin dep HEENT: Yes (GLASSES) Loss of Vision: Denies Hearing Impairment: Denies Cancer: Yes Liver, Pancreatic Did You Recieve Any Treatments: Yes What Type of Treatment Did You: Chemotherapy, Surgical Intervention PANCREATIC CANCER WITH METS TO LIVER DX 2010 HAS HAD MULTIPLE SURGERIES AND 3 DIFFERENT ROUNDS OF CHEMO. Psychosocial: Yes Anxiety Integumentary: No Blood Disorders: No Adverse Reaction/Blood Tranf: No (N/A) Family Medical History COPD, Hypertension SOCIAL HISTORY: -SMOKES 1 PPD OR MORE -ETOH--DRINKS BEER DAILY -DENIES DRUG USE PAST SURGICAL HISTORY: -MULTIPLE SURGERIES FOR PANCREATIC CANCER- -SUBTOTAL PANCREATECTOMY -SPLENECTOMY FOR PANCREATIC CANCER -LIVER RESECTION FOR METASTATIC PANCREATIC CANCER -DISTAL PANCREATIC RESECTION, SPLENECTOMY AND PARTIAL LIVER RESECTION 04/2015 -[place] PORT PLACEMENT 06/2015 -MULTIPLE HERNIA REPAIRS -LEFT INGUINAL HERNIA REPAIR AND COLONOSCOPY 07/16/2019 -UMBILICAL HERNIA REPAIR -BILATERAL SHOULDER SURGERY -RIGHT KNEE SURGERY -LEFT ACHILLES TENDON SURGERY. -MULTIPLE ENDOSCOPIES -TONSILLECTOMY -LAPAROSCOPIC CHOLECYSTECTOMY 11/2014 Physical Exam Vital Signs Vital Signs - First Documented 12/16/22 13:06 Temp 36.5 Pulse 75 Resp 16 B/P (MAP) 184/120 (141) Pulse Ox 98 O2 Delivery Nasal Cannula O2 Flow Rate 2.00 Capillary Refill : Less Than 3 Seconds Height, Weight, BMI Height: 5'5.00" Weight: 164lbs. oz. 74.582481ac; 24.00 BMI Method:Actual General Appearance: No Apparent Distress, WD/WN, Other (SMILING, VERY TALKATIVE, VERY PLEASANT, DOES NOT APPEAR ILL OR TO BE IN ANY DISCOMFORT OR DISTRESS. + ODOR OF CIGARETTES) HEENT: PERRL/EOMI Neck: Normal Inspection Respiratory: Chest Non Tender, Normal Breath Sounds, No Accessory Muscle Use, No Respiratory Distress Cardiovascular: Regular Rate, Rhythm, No Edema, No JVD, No Murmur, Normal Peripheral Pulses Gastrointestinal: Non Tender, Soft Extremity: Normal Capillary Refill, Normal Inspection, Normal Range of Motion, Non Tender, No Calf Tenderness, No Pedal Edema Neurologic/Psychiatric: Alert, Oriented x3, No Motor/Sensory Deficits, Normal Mood/Affect, clubhouse manager II-XII Norm as Tested Skin: Normal Color, Warm/Dry Focused Exam Reason for ruling out sepsis: POSSIBLE SEPSIS Possible Source: Unknown Lactate Level 12/16/22 14:00: Lactic Acid Level 1.44 Time of Focused Exam: 15:30 Respiratory: Normal Breath Sounds, No Accessory Muscle Use, No Respiratory Distress Cardiovascular: Regular Rate, Rhythm, No Murmur Capillary Refill: Less Than 3 Seconds Skin: normal color, warm/dry Lactic Acid Level Laboratory Tests Test 12/16/22 14:00 Lactic Acid Level 1.44 MMOL/L (0.50-2.00) Within 3hrs of presentation: Admin fluids, Admin ABX, Blood cultures prior to ABX's, Focus exam, Lactate level Progress/Results/Core Measures Results/Orders Lab Results Laboratory Tests Test 12/16/22 13:10 12/16/22 13:15 12/16/22 14:00 12/16/22 14:04 Range/Units White Blood Count 21.8 H 4.3-11.0 10^3/uL Red Blood Count 4.44 4.30-5.52 10^6/uL Hemoglobin 15.7 13.3-17.7 g/dL Hematocrit 43 40-54 % Mean Corpuscular Volume 97 80-99 fL Mean Corpuscular Hemoglobin 35 H 25-34 pg Mean Corpuscular Hemoglobin Concent 36 32-36 g/dL Red Cell Distribution Width 12.4 10.0-14.5 % Platelet Count 368 130-400 10^3/uL Mean Platelet Volume 8.7 L 9.0-12.2 fL Immature Granulocyte % (Auto) 1 % Neutrophils (%) (Auto) 80 H 42-75 % Lymphocytes (%) (Auto) 11 L 12-44 % Monocytes (%) (Auto) 7 0-12 % Eosinophils (%) (Auto) 1 0-10 % Basophils (%) (Auto) 1 0-10 % Neutrophils # (Auto) 17.5 H 1.8-7.8 10^3/uL Lymphocytes # (Auto) 2.4 1.0-4.0 10^3/uL Monocytes # (Auto) 1.5 H 0.0-1.0 10^3/uL Eosinophils # (Auto) 0.2 0.0-0.3 10^3/uL Basophils # (Auto) 0.1 0.0-0.1 10^3/uL Immature Granulocyte # (Auto) 0.1 0.0-0.1 10^3/uL Neutrophils % (Manual) 80 % Lymphocytes % (Manual) 9 % Monocytes % (Manual) 11 % Platelet Estimate ADEQUATE Blood Morphology Comment NORMAL Prothrombin Time 13.3 12.2-14.7 SEC INR Comment 1.0 0.8-1.4 Activated Partial Thromboplast Time 31 24-35 SEC D-Dimer 2.69 H 0.00-0.49 UG/ML Sodium Level 124 *L 135-145 MMOL/L Potassium Level 4.0 3.6-5.0 MMOL/L Chloride Level 90 L 98-107 MMOL/L Carbon Dioxide Level 22 21-32 MMOL/L Anion Gap 12 5-14 MMOL/L Blood Urea Nitrogen 6 L 7-18 MG/DL Creatinine 0.70 0.60-1.30 MG/DL Estimat Glomerular Filtration Rate 107 BUN/Creatinine Ratio 9 Glucose Level 119 H 70-105 MG/DL Calcium Level 8.8 8.5-10.1 MG/DL Corrected Calcium 8.6 8.5-10.1 MG/DL Magnesium Level 1.6 1.6-2.4 MG/DL Total Bilirubin 2.2 H 0.1-1.0 MG/DL Aspartate Amino Transf (AST/SGOT) 20 5-34 U/L Alanine Aminotransferase (ALT/SGPT) 14 0-55 U/L Alkaline Phosphatase 72 40-136 U/L Total Creatine Kinase 80 30-200 U/L Creatine Kinase MB 2.6 <6.6 NG/ML Myoglobin 39.1 10.0-92.0 NG/ML Troponin I < 0.028 <0.028 NG/ML B-Type Natriuretic Peptide 20.5 <100.0 PG/ML Total Protein 7.0 6.4-8.2 GM/DL Albumin 4.2 3.2-4.5 GM/DL Amylase Level 55 25-125 U/L Lipase 23 8-78 U/L Serum Alcohol < 10 <10 MG/DL Glucometer 111 H 70-110 MG/DL Lactic Acid Level 1.44 0.50-2.00 MMOL/L Urine Color YELLOW Urine Clarity CLEAR Urine pH 6.5 5-9 Urine Specific [place] <=1.005 1.016-1.022 Urine Protein NEGATIVE NEGATIVE Urine Glucose (UA) NEGATIVE NEGATIVE Urine Ketones NEGATIVE NEGATIVE Urine Nitrite NEGATIVE NEGATIVE Urine Bilirubin NEGATIVE NEGATIVE Urine Urobilinogen 0.2 < = 1.0 MG/DL Urine Leukocyte Esterase NEGATIVE NEGATIVE Urine RBC (Auto) NEGATIVE NEGATIVE Urine RBC NONE /HPF Urine WBC NONE /HPF Urine Crystals NONE /LPF Urine Bacteria NEGATIVE /HPF Urine Casts NONE /LPF Urine Mucus NEGATIVE /LPF Urine Culture Indicated NO Test 12/16/22 15:37 Range/Units Troponin I < 0.028 <0.028 NG/ML My Orders Orders - ANDREW SETHI DO Accucheck Stat ONCE (12/16/22 13:03) Ed Iv/Invasive Line Start (12/16/22 13:03) Ekg Tracing (12/16/22 13:03) O2 (12/16/22 13:03) Monitor-Rhythm Ecg Trace Only (12/16/22 13:03) Cbc With Automated Diff (12/16/22 13:03) Magnesium (12/16/22 13:03) Chest 1 View, Ap/Pa Only (12/16/22 13:03) Ekg Tracing (12/16/22 13:03) Comprehensive Metabolic Panel (12/16/22 13:03) Myoglobin Serum (12/16/22 13:03) Protime With Inr (12/16/22 13:03) Partial Thromboplastin Time (12/16/22 13:03) O2 (12/16/22 13:03) Ed Iv/Invasive Line Start (12/16/22 13:03) Creatine Kinase (12/16/22 13:03) Creatine Kinase Mb (12/16/22 13:03) Lipase (12/16/22 13:03) Amylase (12/16/22 13:03) Bnp Jacque (12/16/22 13:03) Fibrin Degradation Products (12/16/22 13:03) Troponin I Jacque (12/16/22 13:03) Nitroglycerin 0.4 Mg Btl 25's (Nitrostat (12/16/22 13:15) Aspirin Chewable Tablet (Baby Aspirin Ch (12/16/22 13:15) Ct Head Wo-R/O Stroke (12/16/22 13:03) Nitroglycerin Ointment (Nitrobid Ointme (12/16/22 13:15) Alcohol (12/16/22 13:14) Manual Differential (12/16/22 13:10) Blood Culture (12/16/22 13:43) Urinalysis (12/16/22 13:43) Urine Culture (12/16/22 13:43) Ed Iv/Invasive Line Start (12/16/22 13:43) Ed Iv/Invasive Line Start (12/16/22 13:43) Vital Signs Adult Sepsis Patie Q15M (12/16/22 13:43) O2 (12/16/22 13:43) Remove Rings In Anticipation O (12/16/22 13:43) Lactic Acid Analyzer (12/16/22 13:43) Cefepime Injection (Maxipime Injection) (12/16/22 13:45) Isolation Central Supply Req (12/16/22 13:43) Ed Iv/Invasive Line Start (12/16/22 13:45) Ns Iv 1000 Ml (Sodium Chloride 0.9%) (12/16/22 13:45) Ct [place] Chest/Noang Abd-Pelv W (12/16/22 14:05) Iohexol Injection (Omnipaque 350 Mg/Ml 1 (12/16/22 14:45) Received Contrast (Hold Metformin- Contr (12/16/22 14:45) Sodium Chloride Flush (Catheter Flush Sy (12/16/22 14:45) Ns (Ivpb) (Sodium Chloride 0.9% Ivpb Bag (12/16/22 14:45) Troponin I [place] (12/16/22 15:27) Ed Admission (Communication) (12/16/22 15:40) Medications Given in ED Current Medications Medications Dose Ordered Sig/Lorena Route Start Time Stop Time Status Last Admin Dose Admin Aspirin 324 mg ONCE ONCE PO 12/16/22 13:15 12/16/22 13:16 DC 12/16/22 13:26 324 MG Cefepime HCl 1000 mg/Sodium Chloride 50 ml @ 100 mls/hr ONCE ONCE IV 12/16/22 13:45 12/16/22 14:14 DC 12/16/22 14:36 100 MLS/HR Iohexol 100 ml ONCE ONCE IV 12/16/22 14:45 12/16/22 14:46 DC 12/16/22 15:04 80 ML Nitroglycerin 1 inch ONCE ONCE TOP 12/16/22 13:15 12/16/22 13:16 DC 12/16/22 13:26 1 INCH Sodium Chloride 10 ml NEEDED PRN IV 12/16/22 14:45 12/16/22 15:04 10 ML Sodium Chloride 100 ml ONCE ONCE IV 12/16/22 14:45 12/16/22 14:46 DC 12/16/22 15:04 80 ML Vital Signs/I&O 12/16/22 12/16/22 12/16/22 13:06 13:06 15:55 Temp 36.5 Pulse 75 77 Resp 16 18 B/P (MAP) 184/120 (141) 153/92 Pulse Ox 98 97 96 O2 Delivery Nasal Cannula O2 Flow Rate 2.00 Blood Pressure Mean: 141 FSBG Bedside Testing Finger Stick Blood Glucose: 111 Blood Glucose Action Taken: RN NOTIFIED Progress Progress Note : Progress Note GIVEN: -ASPIRIN -NITROPASTE -IV FLUIDS -CEFEPIME BP 184/120 ON ARRIVAL. HR 75, O2 SAT 96% ON ROOM AIR. BP DOWN TO 130'S/80'S AT TIME OF ADMIT. HR REMAINS IN 70'S O2 SATS REMAIN IN UPPER 90'S SEPSIS PROTOCOL INITIATED ON RECEIVING CBC RESULTS SHOWING ELEVATED WBC OF 21.8 NO SOURCE OF INFECTION IDENTIFIED AT THIS TIME. REPEAT TROPONIN IS NEGATIVE. NO EKG CHANGES NO ABNORMALITIES ON CT SCANS. UNEVENTFUL ER STAY PT STATES HE DID HAVE BRIEF EPISODE OF PAIN SHORTLY AFTER ARRIVAL--LASTED A FEW SECONDS AND WENT AWAY NO OTHER SYMPTOMS FOR REMAINDER OF ER STAY. REVIEWED PRIOR RECORDS--ER VISITS, ADMITS/H&P'S/CONSULTS/DISCHARGE SUMMARIES, TESTS/PROCEDURES SISTER LATER ARRIVES REVIEWED TEST RESULTS WITH PT AND SISTER, NEED FOR ADMIT AND PT AGREES TO PLAN. Initial ECG Impression Date: Dec 16, 2022 Initial ECG Impression Time: 13:07 Initial ECG Rate: 70 Initial ECG Rhythm: Normal Sinus Initial ECG Intervals MS 184 QRS 86 QT/QTC 379/409 Initial ECG Comparisson: Unchanged (NO CHANGE FROM 2012) Diagnostic Imaging Comments CT HEAD--PER RADIOLOGIST REPORT AT 1401 FINDINGS: There is no identified hyperdense vessel sign. The ventricles and cerebral spinal fluid spaces are of normal size and configuration for the patient's age. There is no mass effect or midline shift. There is no acute intracranial hemorrhage. There is no abnormal extra-axial fluid collection. There is an air-fluid level in the right maxillary sinus including areas of internal bubbly lucency. IMPRESSION: 1. No identified acute intracranial abnormality. 2. Findings concerning for acute right maxillary sinusitis. Recommend correlation clinically. CXR--PER RADIOLOGIST REPORT AT 1401 FINDINGS: The heart size, mediastinal configuration, and pulmonary vascularity are within normal limits. There is no pleural effusion, pneumothorax, or pneumonia. The osseous structures are unremarkable. IMPRESSION: No acute cardiopulmonary abnormality. CT CHEST ANGIOGRAM--PER RADIOLOGIST REPORT AT 1527 FINDINGS: The heart size is normal. The thoracic aorta is normal in caliber without evidence of dissection. There are no filling defects seen within the pulmonary arteries to suggest pulmonary embolism. There are no suspicious pulmonary nodules, masses or infiltrates. There is no pleural or pericardial fluid. There is no pneumothorax. There is no pathologically enlarged adenopathy in the chest. There are some postsurgical changes in the right upper quadrant. Remainder of the intra-abdominal structures are unremarkable. There are mild degenerative changes in the spine. IMPRESSION: 1. No evidence of aortic aneurysm, dissection or pulmonary embolism. 2. No suspicious pulmonary nodules, masses or infiltrates. Reviewed: Reviewed by Me Departure Communication (Admissions) 1535--SPOKE WITH DR. LAGUERRE, HOSPITALIST, ACCEPTS PT FOR ADMIT. SHE WILL DO ADMIT ORDERS. 155--SPOKE WITH DR. LOPEZ, SUPERVISOR FINISHING DEPARTMENT FOR CONSULT. HE ADVISES ASPIRIN, LOVENOX AND LOSARTAN 25 MG 1556--SPOKE WITH DR. LAGUERRE, AND INFORMED HER OF ABOVE RECOMMENDATIONS. Impression Primary Impression: Chest pain Additional Impressions: Hypertensive urgency Leukocytosis POSSIBLE SEPSIS Hyponatremia History of pancreatic cancer Daily consumption of alcohol Smoker Disposition: ADMITTED INPATIENT Condition: Improved Admissions Decision to Admit Reason: Admit from ER (General) Decision to Admit/Date: Dec 16, 2022 Time/Decision to Admit Time: 15:35 Departure-Patient Inst. Referrals: ALEJANDRA COVARRUBIAS DO (PCP/Family) Primary Care Physician ANDREW SETHI DO Dec 16, 2022 14:01
[2022-12-16 14:13] LABS: BILIRUBIN,URINE NEGATIVE (NEGATIVE); CLARITY,URINE CLEAR; COLOR,URINE YELLOW; GLUCOSE, URINE (UA) NEGATIVE (NEGATIVE); KETONES,URINE NEGATIVE (NEGATIVE); LEUKOCYTE ESTERASE ,URINE NEGATIVE (NEGATIVE); NITRITE,URINE NEGATIVE (NEGATIVE); PH,URINE 6.5 (5-9); PROTEIN,URINE NEGATIVE (NEGATIVE)
[2022-12-16] MEDS: CEFEPIME INJECTION 1,000 MG in NS (IVPB) 50 ML IV ONE ×2 (14:28→14:36)
[2022-12-16 14:29] LABS: BACTERIA,URINE NEGATIVE /HPF
[2022-12-16] MEDS ORDERED: NS 100 ML (IVPB) BAG IV ONE (14:45)
[2022-12-16] MEDS ORDERED: CATHETER FLUSH 10 ML SYR IV PRN (14:45)
[2022-12-16] MEDS ORDERED: HOLD METFORMIN - RECEIVED CONTRAST 20 ML VIAL IV SCH (14:45)
[2022-12-16] MEDS ORDERED: IOHEXOL 350 MG/ML 100 ML (OMNIPAQUE 350) VIAL IV ONE (14:45)
--- NOTE | 2022-12-16 15:20 | Diagnostic Imaging Report ---
INDICATION: CP, HX pancreatic cancer EXAMINATION: CTA chest, abdomen and pelvis. Thin axial sections through the chest, abdomen and pelvis are obtained following intravenous contrast bolus. Multiplanar MIP images were reconstructed and reviewed. All CT scans use one or more of the following dose optimizing techniques: automated exposure control, MA and/or KvP adjustment based on patient size and exam type or iterative reconstruction. INDICATION: Chest pain. FINDINGS: The heart size is normal. The thoracic aorta is normal in caliber without evidence of dissection. There are no filling defects seen within the pulmonary arteries to suggest pulmonary embolism. There are no suspicious pulmonary nodules, masses or infiltrates. There is no pleural or pericardial fluid. There is no pneumothorax. There is no pathologically enlarged adenopathy in the chest. There are some postsurgical changes in the right upper quadrant. Remainder of the intra-abdominal structures are unremarkable. There are mild degenerative changes in the spine. IMPRESSION: 1. No evidence of aortic aneurysm, dissection or pulmonary embolism. 2. No suspicious pulmonary nodules, masses or infiltrates. Dictated by: Dictated on workstation # [id number]
[2022-12-16] MEDS ORDERED: ACETAMINOPHEN 325 MG TABLET PO PRN (16:15)
[2022-12-16] MEDS ORDERED: CALCIUM CARBONATE 500 MG (TUMS) TAB.CHEW PO PRN (16:15)
[2022-12-16] MEDS ORDERED: ONDANSETRON 4 MG/2 ML (SDV) Z0FRAN IVP PRN ×2 (16:15)
[2022-12-16] MEDS ORDERED: MELATONIN 3 MG TABLET PO PRN (16:15)
[2022-12-16] MEDS ORDERED: morphine INJ 4 MG/ML 1 ML (VIAL/SYRINGE) IV PRN (16:15)
[2022-12-16] MEDS ORDERED: PATIENT MAY USE OWN MEDS, ALL PO SCH (16:15)
[2022-12-16] MEDS ORDERED: polyethylene glycoL POWDER 17 GM (MIRALAX) PACK PO PRN (16:15)
[2022-12-16] MEDS ORDERED: ANTACID SUSP 30 ML UDC (MYLANTA) PO PRN (16:15)
[2022-12-16] MEDS ORDERED: BISACODYL 10 MG SUPP (DULCOLAX) PR PRN (16:15)
[2022-12-16] MEDS ORDERED: ONDANSETRON 4 MG/2 ML (SDV) Z0FRAN IV PRN (16:15)
[2022-12-16 16:24] VITALS: BP 153/92
[2022-12-16] MEDS ORDERED: ALPRAZolam 1 MG (XANAX) TAB PO PRN (16:30)
[2022-12-16] MEDS ORDERED: NICOTINE 14 MG (NICODERM) PATCH TD ONE (16:30)
[2022-12-16] MEDS ORDERED: RT-ALBUTEROL/IPRATROPIUM 3 ML (DUONEB) VIAL INH PRN (16:30)
[2022-12-16] MEDS ORDERED: LOSARTAN 25 MG (COZAAR) TAB PO NR (17:00)
[2022-12-16] MEDS: ENOXAPARIN 80 MG/0.8 ML (LOVENOX) SYR SQ SCH (17:09)
[2022-12-16] MEDS: NS IV 1000 ML 1,000 ML IV SCH (17:09)
[2022-12-16 20:00] VITALS: BP 165/99
[2022-12-16 20:45] LABS: BUN/CREATININE RATIO 11; CALCIUM 8.7 MG/DL (8.5-10.1); CARBON DIOXIDE 21 MMOL/L (21-32); CHLORIDE 94 MMOL/L (98-107); CREATININE SERUM 0.95 MG/DL (0.60-1.30); GFR ESTIMATED 93; GLUCOSE 239 MG/DL (70-105); POTASSIUM 4.5 MMOL/L (3.6-5.0); SODIUM 127 MMOL/L (135-145)
[2022-12-16] MEDS: inSUlin ASPART (NovoLOG) 1 UNIT/0.01 ML (CHARGE PER UNIT) SC SCH (21:06)
[2022-12-16] MEDS: RT-ALBUTEROL/IPRATROPIUM 3 ML (DUONEB) VIAL INH SCH (22:37)
[2022-12-17] VITALS: BP 148/93
[2022-12-17] MEDS: NS IV 1000 ML 1,000 ML IV SCH ×2 (01:00→08:15)
[2022-12-17 02:34] LABS: HEMATOCRIT 41 % (40-54); HEMOGLOBIN 14.6 g/dL (13.3-17.7); MEAN CORPUSCULAR HEMOGLOBIN 35 pg (25-34); MEAN CORPUSCULAR HGB CONC 36 g/dL (32-36); MEAN CORPUSCULAR VOLUME 98 fL (80-99); MEAN PLATELET VOLUME 9.3 fL (9.0-12.2); PLATELET COUNT 344 10^3/uL (130-400); WHITE BLOOD COUNT 13.2 10^3/uL (4.3-11.0)
[2022-12-17 02:35] LABS: CHLORIDE 99 MMOL/L (98-107); POTASSIUM 4.1 MMOL/L (3.6-5.0); SODIUM 131 MMOL/L (135-145)
[2022-12-17 02:37] LABS: CALCIUM 8.4 MG/DL (8.5-10.1); GLUCOSE 139 MG/DL (70-105); TRIGLYCERIDES 77 MG/DL (<150); VLDL CHOLESTEROL 15 MG/DL (5-40)
[2022-12-17 02:39] LABS: CARBON DIOXIDE 23 MMOL/L (21-32)
[2022-12-17 02:41] LABS: CREATININE SERUM 0.75 MG/DL (0.60-1.30); GFR ESTIMATED 105
[2022-12-17 02:42] LABS: BUN/CREATININE RATIO 19; CHOLESTEROL 136 MG/DL (< 200)
[2022-12-17 02:43] LABS: HDL CHOLESTEROL 58 MG/DL (40-60)
[2022-12-17] MEDS: inSUlin ASPART (NovoLOG) 1 UNIT/0.01 ML (CHARGE PER UNIT) SC SCH ×2 (05:41→11:55)
[2022-12-17] MEDS: ENOXAPARIN 80 MG/0.8 ML (LOVENOX) SYR SQ SCH (05:56)
[2022-12-17] MEDS: RT-ALBUTEROL/IPRATROPIUM 3 ML (DUONEB) VIAL INH SCH (07:39)
--- NOTE | 2022-12-17 08:13 | Consultation-Cardiology ---
HPI-Cardiology Cardiology Consultation Date of Consultation 12/17/22 Date of Admission Time Seen by Provider: 08:10 Indication: Chest pain HPI 57-year-old gentleman with history of diabetes mellitus, history of pancreatic cancer. Did not feel well yesterday, started to have chest pain, reported blurred vision. Dull achiness in the retrosternal area. Patient is fairly active. Had normal cardiac enzymes. Came into the emergency room. EKG did not show any acute abnormality. Has poor R wave progression in the anterior leads. He was noted to have hyponatremia Home Medications & Allergies Allergies: Coded Allergies: No Known Drug Allergies (Unverified , 07/15/19) Home Medication List Reviewed: Yes [id number]-Bqhiin Hx Patient Social History Marital Status: Employed/Student: employed Smoking Status: Current Everyday Smoker Type Used: Cigarettes 2nd Hand Smoke Exposure: Yes Recent Hopitalizations: No Have you traveled recently?: No Alcohol Use?: Yes Immunizations Up To Date Tetanus Booster (TDap): More than 5yrs Date of Pneumonia Vaccine: May 10, 2010 Past Medical History Discussed below Family Medical History Significant Family History: No Pertinent Family Hx, COPD, Hypertension Review of Systems-General Review of Systems Constitutional: no symptoms reported EENTM: see HPI, blurred vision Respiratory: no symptoms reported, see HPI Cardiovascular: see HPI, chest pain; No edema, No Hx of Intervention, No palpitations, No syncope, No vascular heart diseas, No other Gastrointestinal: no symptoms reported, see HPI Genitourinary: no symptoms reported, see HPI Musculoskeletal: no symptoms reported Skin: no symptoms reported Psychiatric/Neurological: No Symptoms Reported Reviewed Test Results Reviewed Test Results Lab Laboratory Tests Test 12/16/22 13:10 12/16/22 13:15 12/16/22 14:00 12/16/22 14:04 Range/Units White Blood Count 21.8 H 4.3-11.0 10^3/uL Red Blood Count 4.44 4.30-5.52 10^6/uL Hemoglobin 15.7 13.3-17.7 g/dL Hematocrit 43 40-54 % Mean Corpuscular Volume 97 80-99 fL Mean Corpuscular Hemoglobin 35 H 25-34 pg Mean Corpuscular Hemoglobin Concent 36 32-36 g/dL Red Cell Distribution Width 12.4 10.0-14.5 % Platelet Count 368 130-400 10^3/uL Mean Platelet Volume 8.7 L 9.0-12.2 fL Immature Granulocyte % (Auto) 1 % Neutrophils (%) (Auto) 80 H 42-75 % Lymphocytes (%) (Auto) 11 L 12-44 % Monocytes (%) (Auto) 7 0-12 % Eosinophils (%) (Auto) 1 0-10 % Basophils (%) (Auto) 1 0-10 % Neutrophils # (Auto) 17.5 H 1.8-7.8 10^3/uL Lymphocytes # (Auto) 2.4 1.0-4.0 10^3/uL Monocytes # (Auto) 1.5 H 0.0-1.0 10^3/uL Eosinophils # (Auto) 0.2 0.0-0.3 10^3/uL Basophils # (Auto) 0.1 0.0-0.1 10^3/uL Immature Granulocyte # (Auto) 0.1 0.0-0.1 10^3/uL Neutrophils % (Manual) 80 % Lymphocytes % (Manual) 9 % Monocytes % (Manual) 11 % Platelet Estimate ADEQUATE Blood Morphology Comment NORMAL Prothrombin Time 13.3 12.2-14.7 SEC INR Comment 1.0 0.8-1.4 Activated Partial Thromboplast Time 31 24-35 SEC D-Dimer 2.69 H 0.00-0.49 UG/ML Sodium Level 124 *L 135-145 MMOL/L Potassium Level 4.0 3.6-5.0 MMOL/L Chloride Level 90 L 98-107 MMOL/L Carbon Dioxide Level 22 21-32 MMOL/L Anion Gap 12 5-14 MMOL/L Blood Urea Nitrogen 6 L 7-18 MG/DL Creatinine 0.70 0.60-1.30 MG/DL Estimat Glomerular Filtration Rate 107 BUN/Creatinine Ratio 9 Glucose Level 119 H 70-105 MG/DL Calcium Level 8.8 8.5-10.1 MG/DL Corrected Calcium 8.6 8.5-10.1 MG/DL Magnesium Level 1.6 1.6-2.4 MG/DL Total Bilirubin 2.2 H 0.1-1.0 MG/DL Aspartate Amino Transf (AST/SGOT) 20 5-34 U/L Alanine Aminotransferase (ALT/SGPT) 14 0-55 U/L Alkaline Phosphatase 72 40-136 U/L Total Creatine Kinase 80 30-200 U/L Creatine Kinase MB 2.6 <6.6 NG/ML Myoglobin 39.1 10.0-92.0 NG/ML Troponin I < 0.028 <0.028 NG/ML B-Type Natriuretic Peptide 20.5 <100.0 PG/ML Total Protein 7.0 6.4-8.2 GM/DL Albumin 4.2 3.2-4.5 GM/DL Amylase Level 55 25-125 U/L Lipase 23 8-78 U/L Serum Alcohol < 10 <10 MG/DL Glucometer 111 H 70-110 MG/DL Lactic Acid Level 1.44 0.50-2.00 MMOL/L Urine Color YELLOW Urine Clarity CLEAR Urine pH 6.5 5-9 Urine Specific [place] <=1.005 1.016-1.022 Urine Protein NEGATIVE NEGATIVE Urine Glucose (UA) NEGATIVE NEGATIVE Urine Ketones NEGATIVE NEGATIVE Urine Nitrite NEGATIVE NEGATIVE Urine Bilirubin NEGATIVE NEGATIVE Urine Urobilinogen 0.2 < = 1.0 MG/DL Urine Leukocyte Esterase NEGATIVE NEGATIVE Urine RBC (Auto) NEGATIVE NEGATIVE Urine RBC NONE /HPF Urine WBC NONE /HPF Urine Crystals NONE /LPF Urine Bacteria NEGATIVE /HPF Urine Casts NONE /LPF Urine Mucus NEGATIVE /LPF Urine Culture Indicated NO Test 12/16/22 15:37 12/16/22 19:48 12/17/22 02:08 Range/Units Troponin I < 0.028 < 0.028 < 0.028 <0.028 NG/ML Sodium Level 127 L 131 L 135-145 MMOL/L Potassium Level 4.5 4.1 3.6-5.0 MMOL/L Chloride Level 94 L 99 98-107 MMOL/L Carbon Dioxide Level 21 23 21-32 MMOL/L Anion Gap 12 9 5-14 MMOL/L Blood Urea Nitrogen 10 14 7-18 MG/DL Creatinine 0.95 0.75 0.60-1.30 MG/DL Estimat Glomerular Filtration Rate 93 105 BUN/Creatinine Ratio 11 19 Glucose Level 239 H 139 H 70-105 MG/DL Calcium Level 8.7 8.4 L 8.5-10.1 MG/DL White Blood Count 13.2 H 4.3-11.0 10^3/uL Red Blood Count 4.18 L 4.30-5.52 10^6/uL Hemoglobin 14.6 13.3-17.7 g/dL Hematocrit 41 40-54 % Mean Corpuscular Volume 98 80-99 fL Mean Corpuscular Hemoglobin 35 H 25-34 pg Mean Corpuscular Hemoglobin Concent 36 32-36 g/dL Red Cell Distribution Width 12.6 10.0-14.5 % Platelet Count 344 130-400 10^3/uL Mean Platelet Volume 9.3 9.0-12.2 fL Triglycerides Level 77 <150 MG/DL Cholesterol Level 136 < 200 MG/DL LDL Cholesterol Direct 64 1-129 MG/DL VLDL Cholesterol 15 5-40 MG/DL HDL Cholesterol 58 40-60 MG/DL Physical Exam Physical Exam Vital Signs Vital Signs - First Documented 12/16/22 12/16/22 13:06 16:24 Temp 36.5 Pulse 75 Resp 16 B/P (MAP) 184/120 (141) Pulse Ox 98 O2 Delivery Nasal Cannula O2 Flow Rate 2.00 FiO2 28 Capillary Refill : Less Than 3 Seconds Height, Weight, BMI Height: 5'5.00" Weight: 164lbs. oz. 74.130020dx; 24.38 BMI Method:Actual General Appearance: No Apparent Distress, WD/WN, Other (SMILING, VERY TALKATIVE, VERY PLEASANT, DOES NOT APPEAR ILL OR TO BE IN ANY DISCOMFORT OR DISTRESS. + ODOR OF CIGARETTES) HEENT: PERRL/EOMI Neck: Normal Inspection Respiratory: Normal Breath Sounds, No Accessory Muscle Use, No Respiratory Distress Cardiovascular: Regular Rate, Rhythm, No Murmur Gastrointestinal: Non Tender, Soft Extremity: Normal Capillary Refill, Normal Inspection, Normal Range of Motion, Non Tender, No Calf Tenderness, No Pedal Edema Neurologic/Psychiatric: Alert, Oriented x3, No Motor/Sensory Deficits, Normal Mood/Affect, pharmacy assistant II-XII Norm as Tested Skin: Normal Color, Warm/Dry A/P-Cardiology Admission Diagnosis Chest pain Blurred vision Diabetes mellitus Rheumatoid arthritis Assessment/Plan Chest pain nonspecific etiology, cardiac enzymes were negative EKG showed poor R wave progression in the anterior leads Echocardiogram was done, exercise stress echo showed excellent exercise tolerance with no ischemia or infarction with appropriate heart rate response, total of 10 minutes on standard Josafat protocol. Hypertension, started on losartan 25 mg daily. Continue to monitor blood pressure Blurred vision, improved. Unknown etiology Diabetes mellitus, maintained on metformin History of rheumatoid arthritis, maintained on prednisone Hyponatremia. History of pancreatic cancer, had extensive abdominal surgery about 14 years ago, has been in remission SCOTT LOPEZ MD Dec 17, 2022 08:13
[2022-12-17] MEDS ORDERED: NICOTINE PATCH REMOVAL TP SCH (08:59)
[2022-12-17] MEDS ORDERED: NICOTINE 21 MG (NICODERM) PATCH TD SCH (09:00)
[2022-12-17] MEDS ORDERED: LOSARTAN 25 MG (COZAAR) TAB PO SCH (09:00)
[2022-12-17] MEDS ORDERED: NICOTINE 14 MG (NICODERM) PATCH TD SCH (09:00)
[2022-12-17] MEDS ORDERED: ASPIRIN E.C. 81 MG (ECOTRIN) TAB PO SCH (09:00)
[2022-12-17] MEDS ORDERED: PRD10T PO (11:31)
--- NOTE | 2022-12-17 20:56 | Short Stay Summary-Hospitalist ---
History of Present Illness Source: patient Exam Limitations: no limitations Date Seen 12/17/22 Time Seen by a Provider: 11:00 Attending Physician Sammy Herrera DO PCP Admitting Physician: Anuradha Pinto MD Attending Physician: Chris Gaviria MD Referring Physician Date of Admission Dec 16, 2022 at 16:02 Home Medications & Allergies Home Medications Reviewed patient Home Medication Reconciliation performed by pharmacy medication reconciliations agricultural service technician and/or nursing. Patients Allergies have been reviewed. Allergies Allergies Coded Allergies No Known Drug Allergies ([id number]/6/19) Past Josxtxc-Wybcss-Lxmjpb Hx Patient Social History Marrital Status: Employed/Student: employed Tobacco Use?: Yes Tobacco type used: Cigarettes Smoking Status: Current Everyday Smoker Substance use?: No Alcohol Use?: Yes Alcohol type: Beer Alcohol Frequency: Daily Additional Alcohol Comments: 2 beers daily Pt feels they are or have been: No Immunizations Up To Date Hepatitis A: No Hepatitis B: No Date of Pneumonia Vaccine: May 10, 2010 Seasonal Allergies Seasonal Allergies: No Current Status Advance Directives: Yes Communicates: Does Not Communicate Primary Language: Slovak Preferred Spoken Language: Slovak Is interpretation needed?: No Sensory deficits: Vision impairment Implanted or Applied Medical D: None Past Medical History Surgeries: Abdominal, Orthopedic, Pancreatic Pulmonary Embolism Currently Using CPAP: No Currently Using BIPAP: No Hypertension Sexually Transmitted Disease: No HIV/AIDS: No Rheumatoid Arthritis Diabetes, Non-Insulin dep Loss of Vision: Denies Hearing Impairment: Denies Liver, Pancreatic Did You Recieve Any Treatments: Yes What Type of Treatment Did You: Chemotherapy, Surgical Intervention PANCREATIC CANCER WITH METS TO LIVER DX 2010 HAS HAD MULTIPLE SURGERIES AND 3 DIFFERENT ROUNDS OF CHEMO. Anxiety Blood Disorders: No Adverse Reaction/Blood Tranf: No (N/A) Family Medical History No Pertinent Family Hx, COPD, Hypertension SOCIAL HISTORY: -SMOKES 1 PPD OR MORE -ETOH--DRINKS BEER DAILY -DENIES DRUG USE PAST SURGICAL HISTORY: -MULTIPLE SURGERIES FOR PANCREATIC CANCER- -SUBTOTAL PANCREATECTOMY -SPLENECTOMY FOR PANCREATIC CANCER -LIVER RESECTION FOR METASTATIC PANCREATIC CANCER -DISTAL PANCREATIC RESECTION, SPLENECTOMY AND PARTIAL LIVER RESECTION 04/2015 -GROS[place] PORT PLACEMENT 06/2015 -MULTIPLE HERNIA REPAIRS -LEFT INGUINAL HERNIA REPAIR AND COLONOSCOPY 07/16/2019 -UMBILICAL HERNIA REPAIR -BILATERAL SHOULDER SURGERY -RIGHT KNEE SURGERY -LEFT ACHILLES TENDON SURGERY. -MULTIPLE ENDOSCOPIES -TONSILLECTOMY -LAPAROSCOPIC CHOLECYSTECTOMY 11/2014 Review of Systems Constitutional: no symptoms reported EENTM: no symptoms reported Respiratory: no symptoms reported Cardiovascular: chest pain Gastrointestinal: no symptoms reported Physical Exam Physical Exam Vital Signs Vital Signs - First Documented 12/16/22 12/16/22 13:06 16:24 Temp 36.5 Pulse 75 Resp 16 B/P (MAP) 184/120 (141) Pulse Ox 98 O2 Delivery Nasal Cannula O2 Flow Rate 2.00 FiO2 28 Capillary Refill : Less Than 3 Seconds Height, Weight, BMI Height: 5'5.00" Weight: 164lbs. oz. 74.940864cy; 24.38 BMI Method:Actual General Appearance: No Apparent Distress, WD/WN, Other (SMILING, VERY TALKATIVE, VERY PLEASANT, DOES NOT APPEAR ILL OR TO BE IN ANY DISCOMFORT OR DISTRESS. + ODOR OF CIGARETTES) HEENT: PERRL/EOMI, Pharynx Normal Neck: Normal Inspection, Supple Respiratory: Lungs Clear, Normal Breath Sounds, No Respiratory Distress Cardiovascular: Regular Rate, Rhythm, No Edema, No Murmur Gastrointestinal: Normal Bowel Sounds, Non Tender, Soft Extremity: Normal Inspection, Non Tender, No Pedal Edema Neurologic/Psychiatric: Alert, Oriented x3, No Motor/Sensory Deficits, Normal Mood/Affect Skin: Normal Color, Warm/Dry Results Results/Procedures Labs Laboratory Tests 12/16/22 13:10 12/16/22 19:48 12/17/22 02:08 Patient resulted labs reviewed. Imaging: Reviewed Imaging Report Short Stay Diagnosis Discharge Diagnosis-Short Stay Admission Diagnosis Chest pain Final Discharge Diagnosis Esophagitis and gastritis Conclusion Plan Chest pain Esophagitis and gastritis Alcohol abuse Tobacco abuse Cardiology performed stress test which was negative Started on PPI Recommend cessation of tobacco and alcohol use Follow up with PCP in about a week Diagnosis/Problems Diagnosis/Problems (1) Chest pain Status: Acute (2) Esophagitis with gastritis Status: Acute (3) Alcohol abuse Status: Acute (4) Tobacco abuse Status: Acute (5) Hyponatremia Status: Acute CHRIS GAVIRIA MD Dec 17, 2022 20:56
== END 2022-12-17 13:10 | disposition home or self-care (01) ==
LOC: EDUNIT# 12:58 → ER 13:01 → INTOOBSV 16:02 → CSD 16:02
PROVIDERS: ADMIT Family Medicine; ATTEND Internal Medicine
DX: K20.90 Esophagitis, unspecified without bleeding (principal); K29.70 Gastritis, unspecified, without bleeding; H53.8 Other visual disturbances; E11.9 Type 2 diabetes mellitus without complications; M06.9 Rheumatoid arthritis, unspecified; I10 Essential (primary) hypertension; E87.1 Hypo-osmolality and hyponatremia; D72.829 Elevated white blood cell count, unspecified; I16.0 Hypertensive urgency; F10.10 Alcohol abuse, uncomplicated; F17.210 Nicotine dependence, cigarettes, uncomplicated; Z79.84 Long term (current) use of oral hypoglycemic drugs; Z79.899 Other long term (current) drug therapy; Z85.07 Personal history of malignant neoplasm of pancreas
CPT/HCPCS: 70450; 71045; 71275; 74177; 80048 ×2; 80053; 80061; 81000; 82150; 82550; 82553; 82947 ×2; 83605; 83690; 83735; 83874; 83880; 84484 ×2; 85007; 85027 ×2; 85379; 85610; 85730; 87040; 87088; 93005; 93041; 94640 ×2; 96361 ×2; 96372 ×2; 99284; C8929; C8930; G0378; G0480; 36415; 80320; 93306

== ENCOUNTER → 2023-03-01 | Outpatient (CLI) | payer MEDICARE, MEDICAID ==
[~2023-03-01] MED LIST changes: +PRD10T PO
--- NOTE | 2023-03-01 11:34 | Diagnostic Imaging Report ---
PROCEDURE: CT abdomen and pelvis without contrast. TECHNIQUE: Multiple contiguous axial images were obtained through the abdomen and pelvis without the use of intravenous contrast. Auto Exposure Controls were utilized during the CT exam to meet ALARA standards for radiation dose reduction. INDICATION: Left lower quadrant pain and diarrhea for 3 weeks. Patient has history of pancreatic carcinoma. Correlation is made with prior CT from 12/16/2022. The lung bases are clear. There appear to be postoperative changes to the left lobe of the liver. No liver mass is detected. Gallbladder is surgically absent. There appear to be postsurgical changes of distal pancreatectomy and splenectomy. No adrenal mass is identified. The kidneys are unremarkable. Aorta is calcified but nonaneurysmal. Bowel loops are normal in caliber. There is no obstruction. No definite inflammatory changes are seen. There are some nonspecific mildly prominent fluid-filled small bowel loops, which can be seen with enteritis. No fluid collection or free fluid is seen. There is no free air. The bladder is unremarkable. IMPRESSION: 1. Postoperative changes, as described. 2. Nonspecific, mildly prominent fluid-filled small bowel, which can be seen with enteritis. The study is otherwise unremarkable. Dictated by: Dictated on workstation # [id number]
== END ==
LOC: RAD 09:49
PROVIDERS: ATTEND Internal Medicine
DX: R10.32 Left lower quadrant pain (principal); R19.7 Diarrhea, unspecified; Z85.07 Personal history of malignant neoplasm of pancreas
CPT/HCPCS: 74176

== ENCOUNTER → 2023-03-21 | Outpatient (CLI) | payer MEDICARE, MEDICAID ==
--- NOTE | 2023-03-21 17:22 | Diagnostic Imaging Report ---
INDICATION: History of rheumatoid arthritis. COMPARISON: 09/12/2019 FINDINGS: Multiple radiographic views of the bilateral hands were obtained. There is no evidence acute fracture or dislocation. Mild to moderate generalized osteoarthritic changes are noted. No periarticular erosions are seen. Joint spaces are otherwise maintained. No unexpected radiopaque foreign bodies are seen. IMPRESSION: 1. No acute fracture or dislocation of either hand. 2. Mild to moderate osteoarthritic changes. 3. No significant periarticular erosions. Dictated by: Dictated on workstation # [id number]
--- NOTE | 2023-03-21 17:46 | Diagnostic Imaging Report ---
INDICATION: OTHER SPECIFIED RHEUMATOID ARTHRITIS, MULTIPLE SITES COMPARISON: None. FINDINGS: Multiple radiographic views of the bilateral feet were obtained and show no fractures, dislocations, or other acute bony abnormalities. Mild osteoarthritic changes are noted. Otherwise, joint spaces are preserved. No periarticular erosions are seen.. The soft tissues appear unremarkable. No unexpected radiopaque foreign bodies are identified. IMPRESSION: Unremarkable radiographic exam of the bilateral feet. Dictated by: Dictated on workstation # [id number]
== END ==
LOC: RAD 15:38
PROVIDERS: ATTEND Colon & Rectal Surgery
DX: M19.042 Primary osteoarthritis, left hand (principal); M19.041 Primary osteoarthritis, right hand; M06.89 Other specified rheumatoid arthritis, multiple sites